=== PATIENT | male | born 1945 | race Caucasian/White ===

== ENCOUNTER → 2017-01-04 | Outpatient (CLI) | payer MEDICARE ==
--- NOTE | 2017-01-04 17:56 | XR ---
EXAMINATION TYPE: XR shoulder limited bilateral DATE OF EXAM: 01/04/2017 4:10 PM COMPARISON: NONE HISTORY: 71-year-old male carcinoma of bone TECHNIQUE: 2 views each shoulder FINDINGS: There is mild degenerative change at both AC joints. Subacromial space is preserved on both sides wit hout tendinous or bursal calcifications. No acute fracture or dislocation seen. Visualized right nelly thorax is appear clear. No periostitis or osteolysis seen. IMPRESSION: Mild bilateral AC joint OA. No acute osseous abnormality seen. No definite suspicious osseous lesion.
== END | disposition home or self-care (01) ==
LOC: RADXRMAIN 15:43
PROVIDERS: ATTEND Internal Medicine Hematology & Oncology
DX: M19.012 Primary osteoarthritis, left shoulder (principal); M19.011 Primary osteoarthritis, right shoulder; C61 Malignant neoplasm of prostate; C79.51 Secondary malignant neoplasm of bone

== ENCOUNTER → 2019-05-23 | Outpatient (CLI) | payer MEDICARE ==
[2019-05-23 11:35] LABS: African American GFR (CKD) >90 (>60 ml/min/1.73 sqM); Blood Urea Nitrogen 12 mg/dL (9-20)
--- NOTE | 2019-05-23 13:32 | CT ---
EXAMINATION TYPE: CT ChestAbdPelvis w con DATE OF EXAM: 05/23/2019 COMPARISON: 02/11/2016 HISTORY: C61 Prostate ca, Z03.89 observation for mets CONTRAST: CT scan of the chest, abdomen and pelvis is performed with Oral Contrast and with IV Contrast, patien t injected with 100 mL of Isovue 300. CT Chest: LUNGS: The lungs are clear and free of infiltrate or atelectasis. No pulmonary nodule or mass is det ected. No pleural effusion or CT evidence of interstitial lung disease. MEDIASTINUM: Thoracic aorta is of normal caliber. The heart is not enlarged. No evidence for media stinal mass or adenopathy. HILAR STRUCTURES: No evidence for mass. No hilar adenopathy is appreciated. OTHER: Mental note is made of bilateral gynecomastia. CONTRAST CT ABDOMEN AND PELVIS FINDINGS: LIVER/GB: No calcified gallstones. Gallbladder is hydropic at 10.6 cm maximal dimension. No eviden ce of pericholecystic fluid or CBD dilatation. No space occupying hepatic lesion. Biliary tree is of normal caliber. PANCREAS: No inflammation. No distinct mass. SPLEEN: No splenic enlargement. No lesion seen. ADRENALS: No nodule. No thickening. KIDNEYS/BLADDER: No hydronephrosis. No nephrolithiasis. No disctinct renal mass. BOWEL: Normal appendix. Normal bowel caliber. No inflammation. GENITAL ORGANS: No gross abnormality. LYMPH NODES: No greater than 1cm abdominal or pelvic lymph nodes are appreciated. AORTA: No significant abnormality. OSSEOUS STRUCTURES: Severe multilevel degenerative disc disease and spondylosis. Grade 1 anterolisthe sis L4 and L5 measuring 8 mm. No evidence for metastatic disease at this time. OTHER: No significant additional abnormality is seen. IMPRESSION: 1. No evidence for metastatic disease at this time.
--- NOTE | 2019-05-23 16:12 | NM ---
EXAMINATION TYPE: NM bone scan whole body DATE OF EXAM: 05/23/2019 COMPARISON: CT chest abdomen pelvis same date, nuclear medicine bone scan 02/11/2016 HISTORY: Prostate cancer, Z03.89 2 oblique views of the pelvis are presented following the injection of 22.7 mCi Tc 99m MDP. Images w ere acquired 3 hours post injection. FINDINGS: No abnormal uptake within the pelvis. IMPRESSION: 1. No suspicious uptake or photopenic defects to suggest metastatic disease.
== END | disposition home or self-care (01) ==
LOC: RADNMMAIN 10:43
PROVIDERS: ATTEND Internal Medicine Hematology & Oncology
DX: C61 Malignant neoplasm of prostate (principal); Z88.2 Allergy status to sulfonamides
CPT/HCPCS: 82565; 84520; 71260; 74177; 78306; A9503; Q9967

== ENCOUNTER → 2020-09-16 | Outpatient (CLI) | payer MEDICARE ==
--- NOTE | 2020-09-16 18:59 | US ---
EXAMINATION TYPE: US venous doppler duplex LE BI DATE OF EXAM: 09/16/2020 5:33 PM COMPARISON: NONE CLINICAL HISTORY: 75-year-old male R60.0 edema. Edema bilateral legs, worse on the left SIDE PERFORMED: bilateral TECHNIQUE: The lower extremity deep venous system is examined utilizing real time linear array sonog catherine with graded compression, doppler sonography and color-flow sonography. FINDINGS: VESSELS IMAGED: External Iliac Vein (EIV) Common Femoral Vein Deep Femoral Vein Greater Saphenous Vein * Femoral Vein Popliteal Vein Small Saphenous Vein * Proximal Calf Veins (* superficial vessels) Right Leg: no evidence of DVT Left Leg: no evidence of DVT IMPRESSION: No evidence for DVT within the bilateral lower extremities imaged from the groin to the upper calves.
== END | disposition home or self-care (01) ==
LOC: RADUSWWP 16:57
PROVIDERS: ATTEND Family Medicine
DX: R60.0 Localized edema (principal)
CPT/HCPCS: 93970

== ENCOUNTER → 2020-10-08 | Outpatient (CLI) | payer MEDICARE ==
[2020-10-08 09:46] LABS: African American GFR (CKD) >90 (>60 ml/min/1.73 sqM); Blood Urea Nitrogen 15 mg/dL (9-20); Non-African American GFR(CKD) >90 (>60 ml/min/1.73 sqM)
--- NOTE | 2020-10-08 12:42 | CT ---
EXAMINATION TYPE: CT ChestAbdPelvis w con DATE OF EXAM: 10/08/2020 COMPARISON: 05/23/2019, 02/11/2016 HISTORY: 75-year-old male follow-up Prostate and Bone CA TECHNIQUE: Contiguous axial scanning of the chest, abdomen, and pelvis performed with IV Contrast, pa tient injected with 100 mL of Isovue 300. Delayed images through the kidneys were obtained. Coronal/s agittal reconstructions performed. CT DLP: 878.4 mGycm Automated exposure control for dose reduction was used. FINDINGS: CHEST: Heart normal size without pericardial effusion. Scattered three-vessel coronary artery calcifications are present. Thoracic aorta normal caliber with very direct takeoff of the left vertebral artery directly from the aortic arch with minimal atherosclerotic calcifications at the arch and descending thoracic aorta. Trace bilateral gynecomastia. No thoracic lymphadenopathy by CT size criteria. No consolidation or pleural effusion. ABDOMEN: Liver mildly enlarged at 18.1 cm. No focal lesion or biliary ductal dilatation. Portal venous system is patent. Gallbladder, adrenal glands, kidneys, and pancreas appear within normal limits. Spleen borderline in size at 13.7 cm. No dilated small bowel, free fluid, or free air. Oral contrast progressed to the cecum. Moderate stool burden. Normal appendix. Sigmoid diverticulosis . There is new gross retroperitoneal and bilateral common iliac chain lymphadenopathy. At the level of the renal arteries, left para-aortic lymphadenopathy measures up to 3.6 cm. At the left common iliac chain, lymphadenopathy measures up to 6.1 x 3.0 cm. PELVIS: Lymphadenopathy continues along the left external iliac chain measuring up to 4.7 x 3.1 cm and at the left obturator chain measuring 1.8 x 1.5 cm. Bladder urine distended. Prostate gland is small. Pelvic phleboliths. No abnormal fluid collection in the pelvis. BONES: New osteoblastic metastases are present throughout the visualized skeleton including small foci in th e proximal femurs and additional larger lesions throughout the pelvis, sacrum, diffusely throughout t his spine, left greater than right clavicle, sternum, proximal humeri, bilateral scapula, and scatter ed throughout the ribs. Moderate to advanced degenerative disc disease mid to lower thoracic spine and throughout the lumbar spine with a degenerated levoconvex curvature of the lumbar spine and grade 2 anterolisthesis L4-L5. Grade 1 anterolisthesis L5-S1 and grade 1 retrolisthesis T12-L3 levels. IMPRESSION: 1. EXTENSIVE NEW METASTATIC RETROPERITONEAL LYMPHADENOPATHY (MEASURING UP TO 3.6 CM), BILATERAL COMMO N ILIAC CHAIN LYMPHADENOPATHY (LARGEST 6.1 CM ON THE LEFT), AND LEFT EXTERNAL ILIAC CHAIN LYMPHADENOP ATHY (MEASURING UP TO 4.7 CM). 2. NEW DIFFUSE OSTEOBLASTIC METASTASES THROUGHOUT. 3. CAD, SIGMOID DIVERTICULOSIS. ADVANCED DEGENERATIVE CHANGES THROUGHOUT THE LOWER THORACIC AND LUMBA R SPINE. GRADE 2 ANTEROLISTHESIS AT L4-L5.
--- NOTE | 2020-10-08 14:08 | NM ---
EXAMINATION TYPE: NM bone scan whole body DATE OF EXAM: 10/08/2020 COMPARISON: CT same date, bone scan 05/26/2019 HISTORY: Prostate cancer, bone cancer Delayed whole-body scanning was performed following the injection of 23.9 mCi Tc 99m MDP. Images acq uired 3 hours post injection. FINDINGS: 2 numerous to count scattered foci of increased uptake are present throughout the skeleton including the ribs and spine, pelvis, calvarium as noted on same-day CT. Has been marked progression as compare d to previous exam. Soft tissue uptake is normal. Spinal curvature again noted. IMPRESSION: Extensive metastatic disease to bone
== END | disposition home or self-care (01) ==
LOC: RADNMMAIN 08:53
PROVIDERS: ATTEND Internal Medicine Hematology & Oncology
DX: R59.1 Generalized enlarged lymph nodes (principal); I25.10 Atherosclerotic heart disease of native coronary artery without angina pectoris; K57.30 Diverticulosis of large intestine without perforation or abscess without bleeding; C79.51 Secondary malignant neoplasm of bone; C61 Malignant neoplasm of prostate; Z88.2 Allergy status to sulfonamides; Z88.8 Allergy status to other drugs, medicaments and biological substances; Z88.5 Allergy status to narcotic agent
CPT/HCPCS: 82565; 84520; 71260; 74177; 36415; 78306; A9503; Q9967 ×2

== ENCOUNTER → 2020-11-03 | Outpatient (CLI) | payer MEDICARE ==
--- NOTE | 2020-11-03 14:48 | US ---
EXAMINATION TYPE: US venous doppler duplex LE DATE OF EXAM: 11/03/2020 2:41 PM COMPARISON: US September 16, 2020 CLINICAL HISTORY: R22.42 Swelling L /R22.41 Swelling R lower limb. SIDE PERFORMED: Bilateral TECHNIQUE: The lower extremity deep venous system is examined utilizing real time linear array sonog catherine with graded compression, doppler sonography and color-flow sonography. VESSELS IMAGED: Common Femoral Vein Deep Femoral Vein Greater Saphenous Vein * Femoral Vein Popliteal Vein Small Saphenous Vein * Proximal Calf Veins (* superficial vessels) Right Leg: Negative for DVT Left Leg: Negative for DVT Grayscale, color doppler, spectral doppler imaging performed of the deep veins of the bilateral lower extremities. There is normal flow, compressibility, vascular waveforms. IMPRESSION: No ultrasound evidence for acute DVT in either lower extremity. No significant change fr om prior.
== END | disposition home or self-care (01) ==
LOC: RADUSWWP 14:21
PROVIDERS: ATTEND Internal Medicine Hematology & Oncology
DX: R22.43 Localized swelling, mass and lump, lower limb, bilateral (principal); Z88.2 Allergy status to sulfonamides; Z88.5 Allergy status to narcotic agent; Z88.8 Allergy status to other drugs, medicaments and biological substances
CPT/HCPCS: 93970

== ENCOUNTER → 2021-04-03 | Outpatient (CLI) | payer MEDICARE ==
[2021-04-03 09:04] LABS: African American GFR (CKD) >90 (>60 ml/min/1.73 sqM); Blood Urea Nitrogen 13 mg/dL (9-20); Non-African American GFR(CKD) >90 (>60 ml/min/1.73 sqM)
--- NOTE | 2021-04-03 10:35 | CT ---
EXAMINATION TYPE: CT ChestAbdPelvis wo/w con DATE OF EXAM: 04/03/2021 COMPARISON: 10/08/2020 HISTORY: C61 prostate ca CONTRAST: CT scan of the chest, abdomen and pelvis is performed with Oral Contrast and without and with IV Cont rast, patient injected with 100 mL of Isovue 300. CT Chest: LUNGS: There is reticulonodular density right upper lobe as well as a few scattered areas of groundgl ass infiltrate not seen previously. The findings may reflect a small persistent postinflammatory zavaleta ge rather than metastatic disease. Metastatic disease however is not excluded. Correlate clinically. MEDIASTINUM: Thoracic aorta is of normal caliber. The heart is not enlarged. No evidence for media stinal mass or adenopathy. HILAR STRUCTURES: No evidence for mass. No hilar adenopathy is appreciated. OTHER: No significant abnormality. CONTRAST CT ABDOMEN AND PELVIS FINDINGS: LIVER/GB: No calcified gallstones. No space occupying hepatic lesion. Biliary tree is of normal ca liber. PANCREAS: No inflammation. No distinct mass. SPLEEN: No splenic enlargement. No lesion seen. ADRENALS: No nodule. No thickening. KIDNEYS/BLADDER: No hydronephrosis. No nephrolithiasis. No disctinct renal mass. BOWEL: Normal appendix. Normal bowel caliber. No inflammation. GENITAL ORGANS: No gross abnormality. LYMPH NODES: Again noted is extensive adenopathy throughout the left para-aortic region extending int o the left common iliac artery as well as the internal and external iliac chains. The degree of adeno karena is felt to be stable. Lymph node masses measure up to 4 cm. AORTA: No significant abnormality. OSSEOUS STRUCTURES: Stable blastic metastatic lesions of the visualized axial and appendicular skelet on. OTHER: No significant additional abnormality is seen. IMPRESSION: 1. New areas of reticulonodular density within the lungs and vague areas of groundglass density may r eflect inflammatory/postinflammatory change however metastatic disease is not excluded. 2. Stable retroperitoneal lymphadenopathy as discussed above. 3. Stable blastic metastatic disease.
== END | disposition home or self-care (01) ==
LOC: RADCTMAIN 08:09
PROVIDERS: ATTEND Internal Medicine Hematology & Oncology
DX: C61 Malignant neoplasm of prostate (principal)
CPT/HCPCS: 82565; 84520; 71270; 74178; 36415; Q9967

== ENCOUNTER → 2021-04-24 | Outpatient (CLI) | payer MEDICARE ==
--- NOTE | 2021-04-24 14:28 | MR ---
EXAMINATION TYPE: MR hip LT wo con DATE OF EXAM: 04/24/2021 COMPARISON: 04/03/2021 HISTORY: Carcinoma of bone secondary, carcinoma of prostate, bone mets, pain Standard multiplanar, multisequence MRI departmental protocol Multiplanar, multisequence images of the left hip were acquired. Diffusion weighted imaging was perfo rmed. FINDINGS: Tendons: Tendinous attachments are grossly unremarkable. Hip joints: There are full-thickness articular cartilage defects of both hips. There is an extensive debris-conta ining left hip joint effusion. Labrum is not well identified. Bone marrow: There are extensive T1 dark/T2 bright lesions seen throughout the visualized appendicular and axial o sseous structures, consistent with metastatic disease. There is a subchondral curvilinear dark line o f the left femoral head, indicating likely subchondral fracture. There is a T1/T2 dark line of the le ft femoral head neck junction, most likely representing an impaction fracture. Muscle: There is edema of the proximal aspect of the left vastus musculature which is incompletely included o n this examination. Other: There is extensive left pelvic sidewall and retroperitoneal lymphadenopathy. IMPRESSION: 1. Findings compatible with extensive diffuse metastatic disease with left femoral head subchondral f racture and left femoral head neck junction impaction fracture. 2. Extensive left pelvic sidewall and retroperitoneal lymphadenopathy is most consistent with metasta tic disease. 3. There is a debris-containing left hip joint effusion with edema noted in the proximal aspect of th e vastus musculature.
--- NOTE | 2021-04-24 14:32 | MR ---
EXAMINATION TYPE: MR lumbar spine wo/w con DATE OF EXAM: 04/24/2021 COMPARISON: 04/03/2021 CT HISTORY: Carcinoma of bone secondary, carcinoma of prostate, bone mets, pain TECHNIQUE: Multiplanar, multisequence images of the lumbar spine were acquired utilizing [address] gadolinium contrast. At T12-L1, there is a disc bulge with bilateral facet arthropathy resulting in severe right neural fo raminal narrowing. L1-L2: There is a disc bulge with mild bilateral facet arthropathy resulting in severe right and mode rate left neural foraminal narrowing. L2-L3: There is a disc bulge with moderate bilateral facet arthropathy resulting in severe right and moderate left neural foraminal narrowing. L3-L4: There is a disc bulge with moderate bilateral facet arthropathy resulting in severe right and moderate left neural foraminal narrowing. L4-L5: There is mild anterolisthesis with a disc bulge and severe bilateral facet arthropathy resulti ng in moderate left and mild right neural foraminal narrowing and mild central canal stenosis. L5-S1: There is mild bilateral facet arthropathy without sequelae. There is levoscoliosis of the lumbar spine. Multiple T2 dark/T1 right lesions noted throughout the jakob jennifer are consistent with known metastatic disease. The conus terminates at approximately L1. There is loss of vertebral body height at L4, similar to prior CT examination. Multilevel endplate degenerativ e changes are seen. There is mild anterolisthesis of L4 on 5 measuring 5 mm and mild retrolisthesis o f L2 on L3 measuring 3 mm. There is extensive retroperitoneal lymphadenopathy, consistent with known metastatic disease. IMPRESSION: 1. Extensive bony metastatic disease with L4 compression fracture and mild anterolisthesis of L4 on 5 . 2. Levoscoliosis with multilevel disc disease and osteoarthritic changes, as described. 3. Extensive retroperitoneal lymphadenopathy is consistent with known metastatic disease.
== END | disposition home or self-care (01) ==
LOC: RADMRIMAIN 11:28
PROVIDERS: ATTEND Internal Medicine Hematology & Oncology
DX: C61 Malignant neoplasm of prostate (principal); C79.51 Secondary malignant neoplasm of bone; M25.452 Effusion, left hip; R60.0 Localized edema; R59.0 Localized enlarged lymph nodes; M48.56XA Collapsed vertebra, not elsewhere classified, lumbar region, initial encounter for fracture; M43.16 Spondylolisthesis, lumbar region; M41.86 Other forms of scoliosis, lumbar region
CPT/HCPCS: 72158; 73721; A9585

== ENCOUNTER → 2021-07-09 | Outpatient (CLI) | payer MEDICARE ==
[2021-07-09 16:17] LABS: Anisocytosis Slight; Basophils % (A) 0 %; Eosinophils % (A) 0 %; HCT 30.8 % (39.0-53.0); HGB 10.5 gm/dL (13.0-17.5); Lymphocytes # (A) 2.1 k/uL (1.0-4.8); Lymphocytes % (A) 11 %; MCH 34.7 pg (25.0-35.0); MCV 102.2 fL (80.0-100.0); Macrocytosis Moderate; Mean Platelet Volume 9.4; Monocytes # (A) 0.5 k/uL (0-1.0); Monocytes % (A) 3 %; Neutrophils # (A) 16.1 k/uL (1.3-7.7); Neutrophils % (A) 85 %; Platelet Count 191 k/uL (150-450); RBC 3.01 m/uL (4.30-5.90); RDW 18.6 % (11.5-15.5); WBC 18.8 k/uL (3.8-10.6)
[2021-07-09 16:29] LABS: ALT 10 U/L (4-49); AST 22 U/L (17-59); African American GFR (CKD) >90 (>60 ml/min/1.73 sqM); Albumin 4.3 g/dL (3.5-5.0); Alkaline Phosphatase 271 U/L (38-126); Anion Gap 8 mmol/L; Blood Urea Nitrogen 24 mg/dL (9-20); Calcium 10.4 mg/dL (8.4-10.2); Carbon Dioxide 25 mmol/L (22-30); Chloride 102 mmol/L (98-107); Glucose 112 mg/dL (74-99); Non-African American GFR(CKD) >90 (>60 ml/min/1.73 sqM); Potassium 4.6 mmol/L (3.5-5.1); Sodium 135 mmol/L (137-145); Total Bilirubin 0.3 mg/dL (0.2-1.3); Total Protein 6.4 g/dL (6.3-8.2)
--- NOTE | 2021-07-09 16:56 | CT ---
EXAMINATION TYPE: CT angio chest DATE OF EXAM: 07/09/2021 4:48 PM COMPARISON: Prior CT April 03, 2021 HISTORY: Shortness of breath. History of prostate cancer. CT DLP: 352.8 mGycm Automated exposure control for dose reduction was used. CONTRAST: CTA scan of the thorax is performed with IV Contrast, patient injected with 100ml mL of Isovue 370, p ulmonary embolism protocol. MIP images are created and reviewed. FINDINGS: LUNGS: The lungs are grossly clear on current study, there is no concerning parenchymal mass or nodul e identified. Mild basilar atelectatic changes are present bilaterally. There is no pleural effusion or pneumothorax seen. The tracheobronchial tree is patent. MEDIASTINUM: There is slightly suboptimal study with most dense contrast in SVC and some heterogeneit y in the periphery but no convincing CT evidence for acute pulmonary embolism. There are no new grea ter than 1 cm hilar or mediastinal lymph nodes. No pericardial effusion is seen. Heart size stable at upper limits of normal. Prominent right pulmonary artery redemonstrated suggesting underlying pulm onary hypertension. Coronary artery calcification is again seen. OTHER: Symmetric subareolar bilateral rounded gynecomastia redemonstrated. Diffuse sclerotic osseous metastatic disease again seen. IMPRESSION: Suboptimal study without acute pulmonary embolism or new suspicious acute pulmonary proce ss
== END | disposition home or self-care (01) ==
LOC: RADCTMAIN 15:26
PROVIDERS: ATTEND Nurse Practitioner
DX: R06.00 Dyspnea, unspecified (principal)
CPT/HCPCS: 80053; 85025; 71275; 36415; Q9967

== ENCOUNTER 2021-07-16 12:00 | Inpatient (IN) | payer MEDICARE ==
[2021-07-16] MEDS ORDERED: MORPHINE SULFATE 4 MG/ML SYRINGE IVP STA (13:37)
[2021-07-16 13:58] LABS: Anisocytosis Slight; Basophils # (A) 0.1 k/uL (0-0.2); Basophils % (A) 0 %; Eosinophils # (A) 0.2 k/uL (0-0.7); Eosinophils % (A) 1 %; HCT 29.8 % (39.0-53.0); HGB 10.6 gm/dL (13.0-17.5); Lymphocytes # (A) 2.3 k/uL (1.0-4.8); Lymphocytes % (A) 9 %; MCH 35.9 pg (25.0-35.0); MCHC 35.4 g/dL (31.0-37.0); MCV 101.4 fL (80.0-100.0); Macrocytosis Slight; Mean Platelet Volume 8.3; Monocytes # (A) 0.7 k/uL (0-1.0); Monocytes % (A) 3 %; Neutrophils # (A) 22.2 k/uL (1.3-7.7); Neutrophils % (A) 87 %; Platelet Count 229 k/uL (150-450); RBC 2.94 m/uL (4.30-5.90); RDW 17.4 % (11.5-15.5); WBC 25.6 k/uL (3.8-10.6)
[2021-07-16] MEDS ORDERED: VANCOMYCIN IV PER PHARMACY 1 EACH MISC MISCELLANE PRN (14:14)
[2021-07-16] MEDS ORDERED: AMPICILLIN-SULBACTAM 3 GM in SODIUM CHLORIDE 0.9% 100 ML IVPB STA (14:14)
--- NOTE | 2021-07-16 14:22 | ED ---
General Adult HPI - General Chief complaint: Skin/Abscess/Foreign Body Stated complaint: lt leg infection Time Seen by Provider: 07/16/21 12:50 Source: patient, family, RN notes reviewed Mode of arrival: wheelchair Limitations: physical limitation - History of Present Illness Initial comments: 76-year-old male presents to the emergency room for a chief complaint of cellulitis. Patient has a history of metastatic prostate cancer and last received chemotherapy about one week ago. Patient has been dealing with this infection for at least one week now but is a poor historian and family member is unsure. Patient's primary care provider Rico Judd called the ER and would like patient admitted. Patient also has a decubitus ulcer but prefers I do not look at this as he is embarrassed and would prefer only Rico see it. Patient is denying any fevers at home.Patient has no other complaints at this time including shortness of breath, chest pain, abdominal pain, nausea or vomiting, headache, or visual changes. - Related Data Home Medications Medication Instructions Recorded Confirmed Amoxicillin/Potassium Clav 875 mg PO BID 09/24/16 09/24/16 [Amox-Clav 600-42.9 mg/5 ml Ladi] Biotin 5 mg PO DAILY 09/24/16 09/24/16 Cholecalciferol [Vitamin D3] 1,000 unit PO DAILY 09/24/16 09/24/16 Diazepam [Valium] 5 mg PO HS 09/24/16 09/24/16 HYDROcodone/APAP 10-325MG [[place] 1 tab PO Q6H PRN 09/24/16 09/24/16 10-325] Hormone Injection(Unknown Dose) 1 dose INJ QMONTH 09/24/16 09/24/16 Selenium 200 mcg PO DAILY 09/24/16 09/24/16 Verapamil HCl [Verapamil ER] 180 mg PO DAILY 09/24/16 09/24/16 Zinc 50 mg PO DAILY 09/24/16 09/24/16 Previous Rx's Medication Instructions Recorded HYDROcodone/APAP 5-325MG [[place] 5] 1 - 2 each PO Q4H PRN #20 tab 09/28/16 Allergies Allergy/AdvReac Type Severity Reaction Status Date / Time sulfur dioxide Allergy Anaphylaxis Verified 07/16/21 12:46 Review of Systems ROS Statement: Those systems with pertinent positive or pertinent negative responses have been documented in the HPI. ROS Other: All systems not noted in ROS Statement are negative. Past Medical History Past Medical History: Cancer, Hyperlipidemia, Osteoarthritis (OA), Prostate Disorder Additional Past Medical History / Comment(s): Prostate ca, finished chemo June-2016 History of Any Multi-Drug Resistant Organisms: None Reported Past Surgical History: Tonsillectomy Additional Past Surgical History / Comment(s): Abd. surgery for ? rupture. Colonoscopy. Past Anesthesia/Blood Transfusion Reactions: No Reported Reaction Past Psychological History: No Psychological Hx Reported Smoking Status: Never smoker Past Alcohol Use History: None Reported Past Drug Use History: None Reported - Past Family History Mother Family Medical History: No Reported History General Exam Limitations: physical limitation General appearance: alert, in no apparent distress Head exam: Present: atraumatic Eye exam: Present: normal appearance, PERRL, EOMI. Absent: scleral icterus, conjunctival injection ENT exam: Present: normal exam, mucous membranes moist Neck exam: Present: normal inspection, full ROM. Absent: tenderness Respiratory exam: Present: normal lung sounds bilaterally. Absent: respiratory distress, wheezes Cardiovascular Exam: Present: regular rate, normal rhythm, normal heart sounds GI/Abdominal exam: Present: soft, normal bowel sounds. Absent: distended, tenderness Extremities exam: Present: full ROM (full range of motion of the left leg), normal capillary refill (Capillary refill less than 2 seconds, DP pulse 2+ left lower extremity), pedal edema, other (Erythema from the mid lower leg down to the foot consistent with cellulitis) Neurological exam: Present: alert Course Vital Signs 07/16/21 12:42 Temperature 98.5 F Pulse Rate 81 Respiratory 20 Rate Blood Pressure 132/64 O2 Sat by Pulse 97 Oximetry Medical Decision Making - Medical Decision Making I was given a heads-up the patient was coming in to the ER for a cellulitis. Vitals are stable. Patient is afebrile. Patient does have a white blood cell count of 25.6, however did receive Neupogen last week. Lactic acid is normal at 1.0. XR of the left leg shows moderate diffuse subcutaneous edema is noted without acute fracture or dislocation seen in the left tibia or fibula. no bony destruction noted. Ultrasound is negative for DVT. Case was discussed with Rico who does request oncology consultation, accepts admission. - Lab Data Result diagrams: 07/16/21 13:23 07/16/21 13:23 Lab Results 07/16/21 07/16/21 07/16/21 Range/Units 13:23 13:23 13:23 WBC 25.6 H (3.8-10.6) k/uL RBC 2.94 L (4.30-5.90) m/uL Hgb 10.6 L (13.0-17.5) gm/dL Hct 29.8 L (39.0-53.0) % MCV 101.4 H (80.0-100.0) fL MCH 35.9 H (25.0-35.0) pg MCHC 35.4 (31.0-37.0) g/dL RDW 17.4 H (11.5-15.5) % Plt Count 229 (150-450) k/uL MPV 8.3 Neutrophils % 87 % Lymphocytes % 9 % Monocytes % 3 % Eosinophils % 1 % Basophils % 0 % Neutrophils # 22.2 H (1.3-7.7) k/uL Lymphocytes # 2.3 (1.0-4.8) k/uL Monocytes # 0.7 (0-1.0) k/uL Eosinophils # 0.2 (0-0.7) k/uL Basophils # 0.1 (0-0.2) k/uL Anisocytosis Slight Macrocytosis Slight Sodium 137 (137-145) mmol/L Potassium 3.9 (3.5-5.1) mmol/L Chloride 101 (98-107) mmol/L Carbon Dioxide 28 (22-30) mmol/L Anion Gap 8 mmol/L BUN 11 (9-20) mg/dL Creatinine 0.73 (0.66-1.25) mg/dL Est GFR (CKD-EPI)AfAm >90 (>60 ml/min/1.73 sqM) Est GFR (CKD-EPI)NonAf >90 (>60 ml/min/1.73 sqM) Glucose 97 (74-99) mg/dL Plasma Lactic Acid Gaurav 1.0 (0.7-2.0) mmol/L Calcium 10.3 H (8.4-10.2) mg/dL Total Bilirubin 0.3 (0.2-1.3) mg/dL AST 25 (17-59) U/L ALT 13 (4-49) U/L Alkaline Phosphatase 319 H (38-126) U/L Total Protein 6.4 (6.3-8.2) g/dL Albumin 4.1 (3.5-5.0) g/dL Disposition Clinical Impression: Cellulitis, Leukocytosis Disposition: ADMITTED IP TO THIS HOSP Is patient prescribed a controlled substance at d/c from ED?: No Referrals: Manav Martínez MD [Primary Care Provider] - 1-2 days Time of Disposition: 14:41
[2021-07-16] MEDS ORDERED: VANCOMYCIN 1,500 MG in SODIUM CHLORIDE 0.9% 250 ML IVPB STA (14:25)
[2021-07-16 14:26] LABS: ALT 13 U/L (4-49); AST 25 U/L (17-59); African American GFR (CKD) >90 (>60 ml/min/1.73 sqM); Albumin 4.1 g/dL (3.5-5.0); Alkaline Phosphatase 319 U/L (38-126); Anion Gap 8 mmol/L; Blood Urea Nitrogen 11 mg/dL (9-20); Calcium 10.3 mg/dL (8.4-10.2); Carbon Dioxide 28 mmol/L (22-30); Chloride 101 mmol/L (98-107); Glucose 97 mg/dL (74-99); Non-African American GFR(CKD) >90 (>60 ml/min/1.73 sqM); Potassium 3.9 mmol/L (3.5-5.1); Sodium 137 mmol/L (137-145); Total Bilirubin 0.3 mg/dL (0.2-1.3); Total Protein 6.4 g/dL (6.3-8.2)
[2021-07-16] MEDS ORDERED: ONDANSETRON 4 MG/2 ML VIAL IVP PRN (14:38)
[2021-07-16] MEDS ORDERED: NALOXONE 0.4 MG/ML 1 ML VIAL IV PRN (14:38)
[2021-07-16] MEDS ORDERED: MORPHINE SULFATE 4 MG/ML SYRINGE IV PRN (14:38)
[2021-07-16] MEDS ORDERED: HYDROmorphone 0.5 MG/0.5 ML SYRINGE IVP STA ×2 (14:39→15:44)
[2021-07-16] MEDS: SODIUM CHLORIDE 0.9% 1,000 ML IV SCH (14:45)
--- NOTE | 2021-07-16 14:46 | XR ---
EXAMINATION TYPE: XR tibia fibula LT DATE OF EXAM: 07/16/2021 CLINICAL HISTORY: Cellulitis per order. Pain and swelling. TECHNIQUE: Two views of the left leg are obtained. COMPARISON: None. FINDINGS: Moderate diffuse subcutaneous edema is present bilaterally. There is no acute fracture or d islocation seen in the left tibia or fibula. Small well-defined ossific fragment from posterior super ior patella suspect old injury. Visualized ankle joint appears within normal limits. Osseous structur es are somewhat demineralized. No suspicious bony destruction noted . IMPRESSION: As above.
--- NOTE | 2021-07-16 14:58 | US ---
EXAMINATION TYPE: US venous doppler duplex LE LT DATE OF EXAM: 07/16/2021 2:18 PM COMPARISON: 11/03/2020 CLINICAL HISTORY: 76-year-old male swelling erythema. SIDE PERFORMED: Left TECHNIQUE: The lower extremity deep venous system is examined utilizing real time linear array sonog catherine with graded compression, doppler sonography and color-flow sonography. FINDINGS: VESSELS IMAGED: Common Femoral Vein Deep Femoral Vein Femoral Vein Popliteal Vein Small Saphenous Vein * Proximal Calf Veins (* superficial vessels) Left Leg: Negative for DVT IMPRESSION: No evidence for DVT within the left lower extremity imaged from the groin to the upper calf.
[2021-07-16] MEDS ORDERED: FUROSEMIDE 10 MG/ML 4 ML VIAL IV STA (15:56)
[2021-07-16] MEDS ORDERED: PROCHLORPERAZINE 10 MG TAB PO PRN (16:48)
[2021-07-16] MEDS ORDERED: NON FORMULARY DRUG (Kool's Solution 5 ML) PO PRN (16:48)
[2021-07-16] MEDS ORDERED: HYDROmorphone 1 MG/ML 1 ML SYRINGE IVP STA (17:40)
[2021-07-16] MEDS: oxyCODONE-APAP 10-325MG 1 EACH TAB PO SCH (18:33)
[2021-07-16] MEDS: IBUPROFEN 600 MG TAB PO SCH (18:34)
[2021-07-16] MEDS: SENNOSIDES-DOCUSATE SODIUM 1 EACH TAB PO SCH ×2 (21:59→22:01)
[2021-07-16] MEDS: HYDROmorphone 0.5 MG/0.5 ML SYRINGE IVP PRN (22:00)
[2021-07-16] MEDS: AMPICILLIN-SULBACTAM 3 GM in SODIUM CHLORIDE 0.9% 100 ML IVPB SCH (22:02)
[2021-07-16] MEDS: MAG HYDROX/AL HYDROX/SIMETH 30 ML, diphenhydrAMINE ELIXIR 75 MG, LIDOCAINE VISCOUS 30 M... PO SCH ×5 (22:02)
[2021-07-16] MEDS: HEPARIN SODIUM,PORCINE/PF 5,000 UNIT/0.5 ML SYRINGE SQ SCH (22:03)
[2021-07-16] MEDS: MORPHINE SULFATE ER 60 MG TABLET PO SCH (22:03)
[2021-07-16] MEDS: predniSONE 5 MG TAB PO SCH (22:31)
[2021-07-16] MEDS: LORazepam 1 MG TAB PO PRN (23:57)
[2021-07-17] MEDS: HYDROmorphone 0.5 MG/0.5 ML SYRINGE IVP PRN (00:57)
[2021-07-17] MEDS: IBUPROFEN 600 MG TAB PO SCH ×3 (03:12→17:21)
[2021-07-17] MEDS: oxyCODONE-APAP 10-325MG 1 EACH TAB PO SCH ×4 (03:12→18:24)
[2021-07-17] MEDS: MORPHINE SULFATE ER 60 MG TABLET PO SCH ×3 (04:44→17:08)
[2021-07-17] MEDS: SODIUM CHLORIDE 0.9% 1,000 ML IV SCH ×2 (04:46→15:22)
[2021-07-17] MEDS: VANCOMYCIN 1,250 MG in SODIUM CHLORIDE 0.9% 250 ML IVPB SCH ×3 (04:46→17:15)
[2021-07-17 06:32] LABS: ALT 12 U/L (4-49); AST 22 U/L (17-59); African American GFR (CKD) >90 (>60 ml/min/1.73 sqM); Albumin 3.4 g/dL (3.5-5.0); Albumin/Globulin Ratio 1.5; Alkaline Phosphatase 275 U/L (38-126); Anion Gap 5 mmol/L; Blood Urea Nitrogen 9 mg/dL (9-20); Calcium 9.8 mg/dL (8.4-10.2); Carbon Dioxide 30 mmol/L (22-30); Chloride 103 mmol/L (98-107); Globulin 2.2 g/dL; Glucose 103 mg/dL (74-99); Non-African American GFR(CKD) >90 (>60 ml/min/1.73 sqM); Potassium 3.8 mmol/L (3.5-5.1); Sodium 138 mmol/L (137-145); Total Bilirubin 0.3 mg/dL (0.2-1.3); Total Protein 5.6 g/dL (6.3-8.2)
[2021-07-17] MEDS ORDERED: HYDROmorphone 1 MG/ML 1 ML SYRINGE IVP STA (07:01)
[2021-07-17] MEDS: AMPICILLIN-SULBACTAM 3 GM in SODIUM CHLORIDE 0.9% 100 ML IVPB SCH ×4 (07:08→19:52)
[2021-07-17 10:18] LABS: HCT 27.7 % (39.6-50.0); MCH 33.8 pg (27.0-32.0); MCHC 32.5 g/dL (32.0-37.0); MCV 104.1 fL (80.0-97.0); Mean Platelet Volume 10.3 fL (9.5-12.2); Platelet Count 223 X 10*3/uL (140-440); RBC 2.66 X 10*6/uL (4.40-5.60); RDW 17.8 % (11.5-14.5); WBC 23.08 X 10*3/uL (4.50-10.00)
[2021-07-17 10:19] LABS: Basophils # (M) 0 X 10*3/uL (0.00-0.10); Eosinophils # (M) 0 X 10*3/uL (0.04-0.35); Lymphocytes # (M) 1.38 X 10*3/uL (0.90-5.00); Metamyelocytes % 2 % (0-0); Monocytes # (M) 0.69 X 10*3/uL (0.20-1.00); Myelocytes % 1 % (0-0); Neutrophils # (M) 20.31 X 10*3/uL (2.00-8.90); Neutrophils % (M) 88 %; Stomatocytes 2+; Toxic Granulation 2+
[2021-07-17] MEDS: HEPARIN SODIUM,PORCINE/PF 5,000 UNIT/0.5 ML SYRINGE SQ SCH ×2 (11:40→22:29)
[2021-07-17] MEDS: VERAPAMIL SR 180 MG TABLET.ER PO SCH (11:42)
[2021-07-17] MEDS: FUROSEMIDE 20 MG TAB PO SCH (11:42)
[2021-07-17] MEDS: predniSONE 5 MG TAB PO SCH ×2 (11:42→22:29)
[2021-07-17] MEDS: PANTOPRAZOLE 40 MG TABLET PO SCH (11:42)
[2021-07-17] MEDS: POTASSIUM CHLORIDE ER 10 MEQ TAB.ER.PRT PO SCH (11:42)
[2021-07-17] MEDS: FINASTERIDE 5 MG TAB PO SCH (11:43)
[2021-07-17] MEDS: MAG HYDROX/AL HYDROX/SIMETH 30 ML, diphenhydrAMINE ELIXIR 75 MG, LIDOCAINE VISCOUS 30 M... PO SCH ×15 (11:48→22:29)
[2021-07-17] MEDS ORDERED: VANCOMYCIN 1,250 MG in SODIUM CHLORIDE 0.9% 250 ML IVPB SCH (13:00)
--- NOTE | 2021-07-17 16:54 | P.HPIM ---
History of Present Illness H&P Date: 07/17/21 Chief Complaint: Left lower extremity cellulitis 76-year-old male with significant past medical history of metastatic prostate cancer, received chemotherapy 2 weeks prior, hyperlipidemia, osteoarthritis, and ongoing chronic pain from metastatic prostate cancer. Patient was sent to the emergency department for further evaluation of left lower extremity cellulitis, ultrasound was performed no DVTs noted. Review of labs leukocytosis, chronic anemia, mildly elevated C-reactive protein. Patient was placed on Unasyn and vancomycin for left lower extremity cellulitis. Patient denies fever, chills, shortness of breath, chest pain, palpitations, abdominal pain or nausea vo miting. Consultation with hematology/oncology for ongoing prostate CA; consultation with infectious disease for expert opinion on antibiotic therapy of left lower extremity cellulitis. 07/17/2021 Patient seen and examined at bedside. Patient resting comfortably in no acute signs of distress. Patient endorses chronic pain, decrease in left lower extremity swelling with diuresis. No adverse reaction noted with antibiotic therapy. Vital signs and diagnostic testing reviewed. Review of Systems Constitutional: Reports as per HPI Cardiovascular: Reports as per HPI Respiratory: Reports as per HPI Gastrointestinal: Reports as per HPI Genitourinary: Reports as per HPI Musculoskeletal: Reports as per HPI Integumentary: Reports as per HPI Neurological: Reports as per HPI Psychiatric: Reports as per HPI Endocrine: Reports as per HPI Hematologic/Lymphatic: Reports as per HPI Allergic/Immunologic: Reports as per HPI Past Medical History Past Medical History: Cancer, Hyperlipidemia, Osteoarthritis (OA), Prostate Disorder Additional Past Medical History / Comment(s): Prostate ca, finished chemo June-2016 History of Any Multi-Drug Resistant Organisms: None Reported Past Surgical History: Tonsillectomy Additional Past Surgical History / Comment(s): Abd. surgery for ? rupture. Colonoscopy. Past Anesthesia/Blood Transfusion Reactions: No Reported Reaction Past Psychological History: No Psychological Hx Reported Smoking Status: Never smoker Past Alcohol Use History: None Reported Past Drug Use History: None Reported - Past Family History Mother Family Medical History: No Reported History Medications and Allergies Home Medications and Allergies Comment(s): Medications and ALLERGIES reviewed Home Medications Medication Instructions Recorded Confirmed Type Verapamil HCl [Verapamil ER] 180 mg PO DAILY 09/24/16 07/16/21 History Finasteride [Proscar] 1.25 mg PO DAILY 07/16/21 07/16/21 History Furosemide [Lasix] 20 mg PO DAILY 07/16/21 07/16/21 History Ibuprofen [Motrin] 600 mg PO Q8H 07/16/21 07/16/21 History Oumar's Solution 5 ml PO QID PRN 07/16/21 07/16/21 History LORazepam [Ativan] 1 mg PO DAILY PRN 07/16/21 07/16/21 History Morphine Sulfate [Ms Contin] 60 mg PO Q8H 07/16/21 07/16/21 History Naloxone HCl [Narcan] 4 mg NASAL ONCE PRN 07/16/21 07/16/21 History Potassium Chloride ER [K-Dur 10] 10 meq PO DAILY 07/16/21 07/16/21 History Prochlorperazine [Compazine] 10 mg PO Q6H PRN 07/16/21 07/16/21 History Sennosides/Docusate Sodium [Senna 1 tab PO BID 07/16/21 07/16/21 History Plus 8.6-50 mg Tablet] oxyCODONE-APAP 10-325MG [Percocet 2.5 tab PO Q6H 07/16/21 07/16/21 History 10-325 mg] predniSONE 5 mg PO DIRECTED 07/16/21 07/16/21 History Allergies Allergy/AdvReac Type Severity Reaction Status Date / Time sulfur dioxide Allergy Anaphylaxis Verified 07/16/21 16:23 Physical Exam Vitals: Vital Signs Temp Pulse Resp BP Pulse Ox 07/17/21 15:28 98.3 F 82 18 140/65 98 07/17/21 11:05 98.4 F 82 18 142/66 98 07/17/21 07:47 98.3 F 83 18 140/67 98 07/17/21 03:00 97.8 F 81 16 148/66 98 07/16/21 22:43 96.6 F L 76 16 143/64 99 Intake and Output 07/17/21 07/17/21 07/17/21 06:59 14:59 22:59 Other: Voiding Method Toilet - Constitutional General appearance: cooperative, mild distress - EENT Eyes: EOMI, PERRLA - Neck Neck: normal ROM Carotids: bilateral: upstroke normal Thyroid: bilateral: normal size - Respiratory Respiratory: bilateral: CTA (Anterior and posterior lung roldan) - Cardiovascular Sinus rhythm Heart rate: 84 Rhythm: regular Heart sounds: normal: S1, S2 leg Peripheral Edema: left: 2+ radial pulse Peripheral Pulses: bilateral: Normal - Gastrointestinal General gastrointestinal: normal bowel sounds - Integumentary Left lower extremity erythema and swelling noted Sacral wound in healing stages noted Integumentary: pale - Neurologic Neurologic: CNII-XII intact - Musculoskeletal Musculoskeletal: generalized weakness - Psychiatric Psychiatric: A&O x's 3, appropriate affect, intact judgment & insight Results CBC & Chem 7: 07/17/21 05:30 07/17/21 05:30 Labs: Abnormal Lab Results - Last 24 Hours (Table) 07/16/21 07/17/21 07/17/21 Range/Units 13:23 05:30 05:30 WBC 23.08 H (4.50-10.00) X 10*3/uL RBC 2.66 L (4.40-5.60) X 10*6/uL Hgb 9.0 L (13.0-17.0) g/dL Hct 27.7 L (39.6-50.0) % MCV 104.1 H (80.0-97.0) fL MCH 33.8 H (27.0-32.0) pg RDW 17.8 H (11.5-14.5) % Metamyelocytes % 2 H (0-0) % Myelocytes % 1 H (0-0) % Neutrophils # (Manual) 20.31 H (2.00-8.90) X 10*3/uL Eosinophils # (Manual) 0 L (0.04-0.35) X 10*3/uL Glucose 103 H (74-99) mg/dL Alkaline Phosphatase 275 H (38-126) U/L C-Reactive Protein 1.9 H (<1.0) mg/dL Total Protein 5.6 L (6.3-8.2) g/dL Albumin 3.4 L (3.5-5.0) g/dL 07/17/21 Range/Units 08:18 WBC (4.50-10.00) X 10*3/uL RBC (4.40-5.60) X 10*6/uL Hgb (13.0-17.0) g/dL Hct (39.6-50.0) % MCV (80.0-97.0) fL MCH (27.0-32.0) pg RDW (11.5-14.5) % Metamyelocytes % (0-0) % Myelocytes % (0-0) % Neutrophils # (Manual) (2.00-8.90) X 10*3/uL Eosinophils # (Manual) (0.04-0.35) X 10*3/uL Glucose (74-99) mg/dL Alkaline Phosphatase (38-126) U/L C-Reactive Protein 1.9 H (<1.0) mg/dL Total Protein (6.3-8.2) g/dL Albumin (3.5-5.0) g/dL Microbiology - Last 24 Hours (Table) 07/16/21 13:40 Blood Culture - Preliminary Blood No Growth after 24 hours 07/16/21 13:23 Blood Culture - Preliminary Blood No Growth after 24 hours Comments: X-ray of tib-fib no osteomyelitis noted Thrombosis Risk Factor Assmnt - Choose All That Apply Any of the Below Risk Factors Present?: Yes Each Factor Represents 1 point: Swollen legs (current) Other Risk Factors: Yes Each Risk Factor Represents 2 Points: Malignancy Each Risk Factor Represents 3 Points: Age 75 years or older Other congenital or acquired thrombophilia - If yes, enter type in comment: No Thrombosis Risk Factor Assessment Total Risk Factor Score: 6 Thrombosis Risk Factor Assessment Level: High Risk Assessment and Plan Assessment: Left lower extremity cellulitis Sacral pressure ulcer Leukocytosis Metastatic prostate cancer Hyperlipidemia Osteoarthritis Chronic pain related to prostate cancer DO NOT RESUSCITATE Plan: Lower extremity cellulitis, continue Unasyn and vancomycin; consultation with infectious disease for expert opinion and antibiotic therapy Leukocytosis continue to trend, possibly related to infectious process Metastatic prostate cancer with extreme ongoing pain, continue analgesic therapy as needed Continue home medications Continue to monitor vital signs and diagnostic testing Continue medical management Further recommendations come based on patient's clinical condition Time with Patient: Greater than 30
--- NOTE | 2021-07-17 19:03 | P.CONS ---
History of Present Illness - Reason for Consult Consult date: 07/17/21 Lower extremity swelling, cellulitis, metastatic prostate cancer - History of Present Illness Mr Crump is a 76-year-old WM , well known to myself. he was found to have en elevated PSA in the 50 range in 11/22, after his colonoscopy. Repeat on 12/17/15 was 39.6. Follow up on 01/02/16 was 52.1. He therefore underwent a prostate biopsy on 01/26/16 reading adenocarcinoma in 11/12 cores with highest Enedina's score reading 4+5=9. He then had a bone scan and CT A/P. This revealed suspicious uptake at L1-L2 and left 5th rib. He was also found to have a 1.2 cm mass in LLL, and a 2 cm mixed blastic and lytic leasion in the left ischium. He was then referred here for further evaluation and recommendations. He was started on Lupron and Xgeva along with Taxotere for 6 cycles up front. He is s/p 6 cycles of taxotere, completing those in 06/22. He was then placed on Xgeva and Lupron PSA started to show a slow upward trend since mid 2017. He has had left upper molar decay requiring a root canal. He has had a partial break. Xgeva was thus held in 02/23. He was seen by his dentist, and was not felt to require any extraction. He continues to have upper jaw pain, with dental xrays showing sinus infection per him. His PSa was increased to 12.3 in 05/25. He thus started Xtandi on 06/07/19 He had 2 dental extractions each on b/l upper molars on 06/11/19. He had left sided facial swelling, which resolved slowly, by mid 07/26 he resumed Xgeva in early 09/25. This was again held as he developed recurrent jaw pain. He has now been recommended a root canal. Symptoms did improve with antibiotics. Zometa was resumed in 12/27 after pt reported resolution of his dental issues. However , he c/o recurrent dental pain after the infusion , lasting a few days. Zometa was thus stopped As above. patient's PSA at his visit on 09/01/20 was further up to 117. Therefore, Xtandi was discontinued He had biomarker testing done by [facility], which was positive only for the ID H2 mutation, for which there are no approved treatments for prostate cancer. CT chest abdomen and pelvis, and bone scan in early 10/26 confirmed marked progression of bone metastasis, as well as development of significant retroperit oliver and pelvic adenopathy He was therefore changed back to Taxotere on 10/24/20, and is status post 7 cycles. He then developed increased swelling of the left lower extremity compared to the right with increased heaviness as well as marked groin and medial thigh pain made worse by weightbearing. He has been needing to use crutches. Symptoms developed in mid 01/25. Dopplers at his visit on 01/28/21 were negative. He was advised to go to the ER but refused. at his last office visit in 02/25 the patient was having increasing back and hip pain. MRI was scheduled but he was unable to get that done for several weeks because of limited transportation options. He had chemotherapy on 03/24/21 but was unable to come in for an appointment subsequently because of increasing discomfort and difficulty with ambulation. He ultimately had MRIs on 04/24/21, showing most likely progressive disease with compression fracture at L4, as well as significant involvement of the pelvic bones with possible left subcortical femur fracture. In addition extensive pelvic adenopathy was noted. PSA at his last visit had shown further increase to 123. the patient was therefore felt to be progressing on Taxotere. Change in regimen versus comfort care was discussed with him and he opted for febrile of active treatment. He was therefore changed to Jevtana, starting at on 05/27/21. He is status post 3 cycles. Late 06/27 : he denied any fevers/chills/nausea/vomiting. Pain is able to be partially controlled with regular use of opioid regimen ( MS Contin 45 mg every 8 hours, and Percocet every 6 when necessary, prescribed by his PCP). Overall the patient is weak with decreased activity level. He requires crutches for any significant ambulation. Appetite is fair. He continues to have oral tenderness, but states this is overall less severe. His LE swelling is improved. overall the patient feels that his symptoms of pain, weakness, are stable on his current regimen. he did have slightly more fatigue after C 2 He had developed 2 cracked teeth in the right lower lower mandible, due to which Xgeva was held again at his visit in 08/26, and not resumed since. No new dental issues. He does respond to Lasix. As above. After his most recent office visit in late 06/27 he proceeded to cycle #3 about a week ago The patient states that he had some recurrent swelling of his lower extremities after the last chemo, which did not improve with Lasix as before. He also developed an area of redness, ulceration and scabbing of the left lower exudate. This was associated with increased pain especially in the calf and the back of the knee which was making it difficult for him to walk. In addition since his last visit in the office he had also developed a bed sore in the buttock area. He therefore came into the emergency room and was admitted for further managemen t. Left lower extremity Doppler was negative for DVT x-ray of the tibia and fibula showed no fracture. Review of Systems Constitutional: Reports chronic pain, Reports fatigue, Reports weakness, Reports weight loss Eyes: denies blurred vision, denies pain Ears, nose, mouth and throat: Denies headache, Denies sore throat Cardiovascular: Reports decreased exercise tolerance Respiratory: Denies cough Gastrointestinal: Reports as per HPI Genitourinary: Reports as per HPI Musculoskeletal: Reports as per HPI, Reports gait dysfunction, Reports muscle weakness Integumentary: Reports as per HPI, Reports color changes, Reports foot/leg ulcers Neurological: Reports weakness Psychiatric: Reports anxiety Endocrine: Reports fatigue Hematologic/Lymphatic: Reports as per HPI Past Medical History Past Medical History: Cancer, Hyperlipidemia, Osteoarthritis (OA), Prostate Disorder Additional Past Medical History / Comment(s): Prostate ca, finished chemo June-2016 History of Any Multi-Drug Resistant Organisms: None Reported Past Surgical History: Tonsillectomy Additional Past Surgical History / Comment(s): Abd. surgery for ? rupture. Colonoscopy. Past Anesthesia/Blood Transfusion Reactions: No Reported Reaction Past Psychological History: No Psychological Hx Reported Smoking Status: Never smoker Past Alcohol Use History: None Reported Past Drug Use History: None Reported - Past Family History Mother Family Medical History: No Reported History Medications and Allergies Home Medications Medication Instructions Recorded Confirmed Type Verapamil HCl [Verapamil ER] 180 mg PO DAILY 09/24/16 07/16/21 History Finasteride [Proscar] 1.25 mg PO DAILY 07/16/21 07/16/21 History Furosemide [Lasix] 20 mg PO DAILY 07/16/21 07/16/21 History Ibuprofen [Motrin] 600 mg PO Q8H 07/16/21 07/16/21 History Oumar's Solution 5 ml PO QID PRN 07/16/21 07/16/21 History LORazepam [Ativan] 1 mg PO DAILY PRN 07/16/21 07/16/21 History Morphine Sulfate [Ms Contin] 60 mg PO Q8H 07/16/21 07/16/21 History Naloxone HCl [Narcan] 4 mg NASAL ONCE PRN 07/16/21 07/16/21 History Potassium Chloride ER [K-Dur 10] 10 meq PO DAILY 07/16/21 07/16/21 History Prochlorperazine [Compazine] 10 mg PO Q6H PRN 07/16/21 07/16/21 History Sennosides/Docusate Sodium [Senna 1 tab PO BID 07/16/21 07/16/21 History Plus 8.6-50 mg Tablet] oxyCODONE-APAP 10-325MG [Percocet 2.5 tab PO Q6H 07/16/21 07/16/21 History 10-325 mg] predniSONE 5 mg PO DIRECTED 07/16/21 07/16/21 History Allergies Allergy/AdvReac Type Severity Reaction Status Date / Time sulfur dioxide Allergy Anaphylaxis Verified 07/16/21 16:23 Physical Exam Vitals: Vital Signs Temp Pulse Resp BP Pulse Ox 07/17/21 11:05 98.4 F 82 18 142/66 98 07/17/21 07:47 98.3 F 83 18 140/67 98 07/17/21 03:00 97.8 F 81 16 148/66 98 07/16/21 22:43 96.6 F L 76 16 143/64 99 - Constitutional General appearance: no acute distress - EENT Poor dentition Eyes: EOMI, PERRLA ENT: hearing grossly normal - Neck Neck: no lymphadenopathy - Respiratory Respiratory: bilateral: CTA - Cardiovascular Rhythm: regular Heart sounds: normal: S1, S2 - Gastrointestinal General gastrointestinal: normal bowel sounds, soft - Integumentary Mild redness of the pretibial area on the left lower 70. 3-4 cm area of redness with scabbing - Neurologic Neurologic: CNII-XII intact - Musculoskeletal Left lower extremity edema Musculoskeletal: generalized weakness - Psychiatric Psychiatric: A&O x's 3, appropriate affect Results CBC & Chem 7: 07/17/21 05:30 07/17/21 05:30 Labs: Abnormal Lab Results - Last 24 Hours (Table) 07/16/21 07/17/21 07/17/21 Range/Units 13:23 05:30 05:30 WBC 23.08 H (4.50-10.00) X 10*3/uL RBC 2.66 L (4.40-5.60) X 10*6/uL Hgb 9.0 L (13.0-17.0) g/dL Hct 27.7 L (39.6-50.0) % MCV 104.1 H (80.0-97.0) fL MCH 33.8 H (27.0-32.0) pg RDW 17.8 H (11.5-14.5) % Metamyelocytes % 2 H (0-0) % Myelocytes % 1 H (0-0) % Neutrophils # (Manual) 20.31 H (2.00-8.90) X 10*3/uL Eosinophils # (Manual) 0 L (0.04-0.35) X 10*3/uL Glucose 103 H (74-99) mg/dL Alkaline Phosphatase 275 H (38-126) U/L C-Reactive Protein 1.9 H (<1.0) mg/dL Total Protein 5.6 L (6.3-8.2) g/dL Albumin 3.4 L (3.5-5.0) g/dL 07/17/21 Range/Units 08:18 WBC (4.50-10.00) X 10*3/uL RBC (4.40-5.60) X 10*6/uL Hgb (13.0-17.0) g/dL Hct (39.6-50.0) % MCV (80.0-97.0) fL MCH (27.0-32.0) pg RDW (11.5-14.5) % Metamyelocytes % (0-0) % Myelocytes % (0-0) % Neutrophils # (Manual) (2.00-8.90) X 10*3/uL Eosinophils # (Manual) (0.04-0.35) X 10*3/uL Glucose (74-99) mg/dL Alkaline Phosphatase (38-126) U/L C-Reactive Protein 1.9 H (<1.0) mg/dL Total Protein (6.3-8.2) g/dL Albumin (3.5-5.0) g/dL Comments: X-ray tibia-fibula report reviewed Venous US: report reviewed Assessment and Plan (1) Cellulitis Narrative/Plan: The patient had developed recurrent edema, which was not as responsive as usual to Lasix. He then developed ulceration and pain . At this time there is only mild redness without significant warmth. This area was not very tender to touch. Patient states to the lower exudate swelling has also diminished with treatment inpatient. - Cultures are negative. Defer to the admitting service for treatment of cellulitis Current Visit: Yes Status: Acute Code(s): L03.90 - CELLULITIS, UNSPECIFIED SNOMED Code(s): 747951720 (2) Leukocytosis Narrative/Plan: This is most likely due to the patient having received pegylated G-CSF after his most recent chemotherapy less than 2 weeks ago Current Visit: Yes Status: Acute Code(s): D72.829 - ELEVATED WHITE BLOOD CELL COUNT, UNSPECIFIED SNOMED Code(s): 537166954 (3) Adenocarcinoma of prostate, stage 4 Narrative/Plan: Diagnostic and therapeutic circumstances as described. The patient is currently status post 3 cycles of his current regimen. PSA had diminished after cycle 1 but had increased after cycle 2. Repeat PSA. If PSA is progressively increasing, then it would be reasonable to consider imaging for restaging. His increased pain and swelling on the left side could be due to progression of disease in the pelvis and osseous structures in that area. Current Visit: Yes Status: Acute Code(s): C61 - MALIGNANT NEOPLASM OF PROSTATE SNOMED Code(s): 889242350 Plan: Check left hip and pelvis x-ray. The patient has known metastatic disease in that area, and progression could be causing the left lower extremity pain.
--- NOTE | 2021-07-17 22:13 | XR ---
EXAMINATION TYPE: XR Hip LT and AP Pelvis DATE OF EXAM: 07/17/2021 COMPARISON: NONE HISTORY: Pain. Metastatic disease. TECHNIQUE: 3 views FINDINGS: There is nondisplaced subcapital fracture of the left femur. There is slight impaction. The re is no dislocation. There are small osteoblastic foci in the visualized bony pelvis and the proxima l femurs. IMPRESSION: Osteoblastic metastatic disease. Acute subcapital impacted fracture left femur.
[2021-07-17] MEDS: SENNOSIDES-DOCUSATE SODIUM 1 EACH TAB PO SCH (22:29)
--- NOTE | 2021-07-17 23:44 | P.CONS ---
History of Present Illness - Reason for Consult Consult date: 07/17/21 left leg cellulitis , sacral pressure ulcer Requesting physician: Rico Judd - Chief Complaint left leg pain and pressure ulcer to sacral area x days - History of Present Illness History of present illness : Patient is 76-year-old male with a past medical history significant for metastatic prostate cancer in this patient last chemotherapy has been about a week ago patient has presented to the hospital with concern for pressure ulcer to the sacral area as well as left leg pain swelling redness has been going on for about a week patient denies having any h istory of any trauma patient is having pain to the left leg to be more of a daily aching 4-5 today no radiation patient did have some swelling in the area of laceration with the patient thought may have bumped into something there is no drainage patient also complaining of ulceration to the sacral area for the last few weeks he did have some dull aching pain to the sacral area 5-6 over 10 no radiation and did not have any drainage with the symptom patient has been evaluated by the ER physician on arrival to the ER patient was afebrile patient did have a white count of 25.6 down to 23.8 kidney function has been normal blood cultures have been obtained patient has been started on vancomycin and Unasyn infectious disease was consulted for further management of antibiotic therapy Review of system: CONSTITUTIONAL: Positive for weakness denies fever. EYES: No complaint. ENT: No complaint. RESPIRATORY: No complaint. CARDIOVASCULAR: No complaint. GENITOURINARY: No complaint. GASTROINTESTINAL: No complaint. MUSCULOSKELETAL: As per history of present illness. INTEGUMENTARY: As per history of present illness PSYCHOLOGIC: No complaint. ENDOCRINE: No complaint. NEUROLOGIC: No complaint. Past medical history : Reviewed, documented below Past surgical history : Reviewed, documented below Social history: Reviewed, documented below Medications: Reviewed, as documented below EXAMINATION: Vital sigans= Reviewed and documented below GENERAL DESCRIPTION: Elderly male lying in bed, no distress. No tachypnea or accessory muscle of respiration use. HEENT: Shows Pallor , no scleral icterus. Oral mucous membrane is dry. NECK: Trachea central, no thyromegaly. LUNGS: Unlabored breathing. Clear to auscultation anteriorly. No wheeze or crackle. HEART: S1, S2, regular rate and rhythm. ABDOMEN: Soft, no tenderness , guarding or rigidity EXTREMITIES: Left leg with minimal swelling redness slight warmth no open wound or any drainage. SKIN: No rash, no masses palpable. Patient did have a unstageable pressure ulcer to the sacral area with slough tissue minimal surrounding redness no foul- smelling drainage NEUROLOGICAL: The patient is awake, alert, oriented x3, mood and affect normal. LABS AND RADIOLOGY: Reviewed results see below Assessment : 1-patient with unstageable sacral pressure ulcer with slough tissue minimal surrounding cellulitis recommend local wound care. 2patient with left lower extremity cellulitis likely from gram-positive skin lilia Plan: 1-local wound care to the sacral wound with the Medihoney followed by moist dressing daily of the pressure 2-Unasyn 3 g every 6 hours to continue for lower extremity cellulitis and possibility of infected sacral pressure ulcer 3-gentle IV fluid We will follow on clinical condition and cultures to further adjust medication if needed Thank you for this consultation we will follow the patient along with you Past Medical History Past Medical History: Cancer, Hyperlipidemia, Osteoarthritis (OA), Prostate Disorder Additional Past Medical History / Comment(s): Prostate ca, finished chemo June-2016 History of Any Multi-Drug Resistant Organisms: None Reported Past Surgical History: Tonsillectomy Additional Past Surgical History / Comment(s): Abd. surgery for ? rupture. Colonoscopy. Past Anesthesia/Blood Transfusion Reactions: No Reported Reaction Past Psychological History: No Psychological Hx Reported Smoking Status: Never smoker Past Alcohol Use History: None Reported Past Drug Use History: None Reported - Past Family History Mother Family Medical History: No Reported History Medications and Allergies Home Medications Medication Instructions Recorded Confirmed Type Verapamil HCl [Verapamil ER] 180 mg PO DAILY 09/24/16 07/16/21 History Finasteride [Proscar] 1.25 mg PO DAILY 07/16/21 07/16/21 History Furosemide [Lasix] 20 mg PO DAILY 07/16/21 07/16/21 History Ibuprofen [Motrin] 600 mg PO Q8H 07/16/21 07/16/21 History Oumar's Solution 5 ml PO QID PRN 07/16/21 07/16/21 History LORazepam [Ativan] 1 mg PO DAILY PRN 07/16/21 07/16/21 History Morphine Sulfate [Ms Contin] 60 mg PO Q8H 07/16/21 07/16/21 History Naloxone HCl [Narcan] 4 mg NASAL ONCE PRN 07/16/21 07/16/21 History Potassium Chloride ER [K-Dur 10] 10 meq PO DAILY 07/16/21 07/16/21 History Prochlorperazine [Compazine] 10 mg PO Q6H PRN 07/16/21 07/16/21 History Sennosides/Docusate Sodium [Senna 1 tab PO BID 07/16/21 07/16/21 History Plus 8.6-50 mg Tablet] oxyCODONE-APAP 10-325MG [Percocet 2.5 tab PO Q6H 07/16/21 07/16/21 History 10-325 mg] predniSONE 5 mg PO DIRECTED 07/16/21 07/16/21 History Allergies Allergy/AdvReac Type Severity Reaction Status Date / Time sulfur dioxide Allergy Anaphylaxis Verified 07/16/21 16:23 Physical Exam Vitals: Vital Signs Temp Pulse Resp BP Pulse Ox 07/17/21 11:05 98.4 F 82 18 142/66 98 07/17/21 07:47 98.3 F 83 18 140/67 98 07/17/21 03:00 97.8 F 81 16 148/66 98 07/16/21 22:43 96.6 F L 76 16 143/64 99 Results CBC & Chem 7: 07/17/21 05:30 07/17/21 05:30 Labs: Abnormal Lab Results - Last 24 Hours (Table) 07/16/21 07/17/21 07/17/21 Range/Units 13:23 05:30 05:30 WBC 23.08 H (4.50-10.00) X 10*3/uL RBC 2.66 L (4.40-5.60) X 10*6/uL Hgb 9.0 L (13.0-17.0) g/dL Hct 27.7 L (39.6-50.0) % MCV 104.1 H (80.0-97.0) fL MCH 33.8 H (27.0-32.0) pg RDW 17.8 H (11.5-14.5) % Metamyelocytes % 2 H (0-0) % Myelocytes % 1 H (0-0) % Neutrophils # (Manual) 20.31 H (2.00-8.90) X 10*3/uL Eosinophils # (Manual) 0 L (0.04-0.35) X 10*3/uL Glucose 103 H (74-99) mg/dL Alkaline Phosphatase 275 H (38-126) U/L C-Reactive Protein 1.9 H (<1.0) mg/dL Total Protein 5.6 L (6.3-8.2) g/dL Albumin 3.4 L (3.5-5.0) g/dL 07/17/21 Range/Units 08:18 WBC (4.50-10.00) X 10*3/uL RBC (4.40-5.60) X 10*6/uL Hgb (13.0-17.0) g/dL Hct (39.6-50.0) % MCV (80.0-97.0) fL MCH (27.0-32.0) pg RDW (11.5-14.5) % Metamyelocytes % (0-0) % Myelocytes % (0-0) % Neutrophils # (Manual) (2.00-8.90) X 10*3/uL Eosinophils # (Manual) (0.04-0.35) X 10*3/uL Glucose (74-99) mg/dL Alkaline Phosphatase (38-126) U/L C-Reactive Protein 1.9 H (<1.0) mg/dL Total Protein (6.3-8.2) g/dL Albumin (3.5-5.0) g/dL
[2021-07-18] MEDS: MORPHINE SULFATE ER 60 MG TABLET PO SCH ×4 (00:03→23:41)
[2021-07-18] MEDS: IBUPROFEN 600 MG TAB PO SCH ×4 (00:04→23:41)
[2021-07-18] MEDS: oxyCODONE-APAP 10-325MG 1 EACH TAB PO SCH ×5 (00:05→23:40)
[2021-07-18] MEDS: AMPICILLIN-SULBACTAM 3 GM in SODIUM CHLORIDE 0.9% 100 ML IVPB SCH ×4 (01:49→20:31)
[2021-07-18] MEDS: VANCOMYCIN 1,250 MG in SODIUM CHLORIDE 0.9% 250 ML IVPB SCH ×2 (02:21→10:19)
[2021-07-18] MEDS: HYDROmorphone 0.5 MG/0.5 ML SYRINGE IVP PRN ×2 (06:09→20:24)
[2021-07-18 07:14] LABS: Glucose,Whole Blood 101 mg/dL (75-99)
[2021-07-18] MEDS: POTASSIUM CHLORIDE ER 10 MEQ TAB.ER.PRT PO SCH (07:32)
[2021-07-18] MEDS: FUROSEMIDE 20 MG TAB PO SCH (07:32)
[2021-07-18] MEDS: SENNOSIDES-DOCUSATE SODIUM 1 EACH TAB PO SCH ×2 (07:33→20:26)
[2021-07-18] MEDS: FINASTERIDE 5 MG TAB PO SCH (07:33)
[2021-07-18] MEDS: PANTOPRAZOLE 40 MG TABLET PO SCH (07:33)
[2021-07-18] MEDS: predniSONE 5 MG TAB PO SCH ×2 (07:33→20:26)
[2021-07-18] MEDS: HEPARIN SODIUM,PORCINE/PF 5,000 UNIT/0.5 ML SYRINGE SQ SCH ×2 (07:34→20:27)
[2021-07-18] MEDS: MAG HYDROX/AL HYDROX/SIMETH 30 ML, diphenhydrAMINE ELIXIR 75 MG, LIDOCAINE VISCOUS 30 M... PO SCH ×15 (07:34→20:39)
[2021-07-18] MEDS: VERAPAMIL SR 180 MG TABLET.ER PO SCH (07:34)
[2021-07-18] MEDS: LORazepam 1 MG TAB PO PRN (07:35)
[2021-07-18] MEDS ORDERED: VANCOMYCIN TROUGH DUE 1 EACH MISC MISCELLANE ONE (08:00)
[2021-07-18 09:04] LABS: Anisocytosis Slight; Basophils % (A) 0 %; Eosinophils # (A) 0.1 k/uL (0-0.7); Eosinophils % (A) 0 %; HCT 29.2 % (39.0-53.0); Lymphocytes # (A) 2.3 k/uL (1.0-4.8); Lymphocytes % (A) 13 %; MCH 35.3 pg (25.0-35.0); MCHC 34.2 g/dL (31.0-37.0); MCV 103.2 fL (80.0-100.0); Macrocytosis Moderate; Mean Platelet Volume 7.6; Monocytes # (A) 0.4 k/uL (0-1.0); Monocytes % (A) 2 %; Neutrophils # (A) 15.2 k/uL (1.3-7.7); Neutrophils % (A) 84 %; Platelet Count 236 k/uL (150-450); RBC 2.83 m/uL (4.30-5.90); RDW 17.6 % (11.5-15.5); WBC 18.2 k/uL (3.8-10.6)
[2021-07-18] MEDS: SODIUM CHLORIDE 0.9% 1,000 ML IV SCH ×2 (09:25→20:27)
[2021-07-18 09:39] LABS: ALT 11 U/L (4-49); AST 19 U/L (17-59); African American GFR (CKD) >90 (>60 ml/min/1.73 sqM); Albumin 3.3 g/dL (3.5-5.0); Albumin/Globulin Ratio 1.6; Alkaline Phosphatase 248 U/L (38-126); Anion Gap 5 mmol/L; Blood Urea Nitrogen 7 mg/dL (9-20); Calcium 9.8 mg/dL (8.4-10.2); Carbon Dioxide 28 mmol/L (22-30); Chloride 106 mmol/L (98-107); Globulin 2.1 g/dL; Glucose 126 mg/dL (74-99); Non-African American GFR(CKD) >90 (>60 ml/min/1.73 sqM); Potassium 3.8 mmol/L (3.5-5.1); Sodium 139 mmol/L (137-145); Total Bilirubin 0.2 mg/dL (0.2-1.3); Total Protein 5.4 g/dL (6.3-8.2)
[2021-07-18 11:33] LABS: Glucose,Whole Blood 133 mg/dL (75-99)
[2021-07-18] MEDS: INSULIN ASPART (NovoLOG) 100 UNIT/ML VIAL SQ SCH ×3 (11:35→20:50)
[2021-07-18] MEDS: VANCOMYCIN 1,000 MG in SODIUM CHLORIDE 0.9% 250 ML IVPB SCH ×2 (11:43→20:27)
[2021-07-18 16:36] LABS: Glucose,Whole Blood 133 mg/dL (75-99)
--- NOTE | 2021-07-18 18:00 | P.PN ---
Subjective Progress Note Date: 07/18/21 Principal diagnosis: Left lower extremity cellulitis 76-year-old male with significant past medical history of metastatic prostate cancer, received chemotherapy 2 weeks prior, hyperlipidemia, osteoarthritis, and ongoing chronic pain from metastatic prostate cancer. Patient was sent to the emergency department for further evaluation of left lower extremity cellulitis, ultrasound was performed no DVTs noted. Review of labs leukocytosis, chronic anemia, mildly elevated C-reactive protein. Patient was placed on Unasyn and vancomycin for left lower extremity cellulitis. Patient denies fever, chills, shortness of breath, chest pain, palpitations, abdominal pain or nausea vomiting. Consultation with hematology/oncology for ongoing prostate CA; consultation with infectious disease for expert opinion on antibiotic therapy of left lower extremity cellulitis. 07/17/2021 Patient seen and examined at bedside. Patient resting comfortably in no acute signs of distress. Patient endorses chronic pain, decrease in left lower extremity swelling with diuresis. No adverse reaction noted with antibiotic therapy. Vital signs and diagnostic testing reviewed. 07/18/2021 Patient is currently sitting on the side of the bed. Left lower the redness and swelling is improving. Continued on antibiotics in the form of Unasyn as per ID recommendations. Next and pain is controlled with a morphine ER and IV. Denied any complaints of chest pain. Patient has been afebrile. No nausea vomiting or abdominal pain or diarrhea. Laboratory data showed WBC 18.2 hemoglobin 10.0 and platelets 236 MCV 103.2 BUN 7 and creatinine 0.67, AST 19 and 11 and alk phos 248. No complaints of chest pain or shortness of breath. No headache or dizziness or lightheadedness. Active Medications Generic Name Dose Route Start Last Admin Trade Name Freq PRN Reason Stop Dose Admin Al Hydroxide/Mg Hydroxide 30 0 ml 07/16/21 22:00 07/18/21 15:29 ml/ Diphenhydramine HCl 75 mg/ PO 5 ml Lidocaine HCl 30 ml/ TID MENDOZA Administration Dexamethasone Sodium Phosphate 3 mg/ Sterile Water 29.25 ml Finasteride 1.25 mg 07/17/21 09:00 07/18/21 07:33 Finasteride 5 Mg Tab PO 1.25 mg DAILY MENDOZA Administration Furosemide 20 mg 07/17/21 09:00 07/18/21 07:32 Furosemide 20 Mg Tab PO 20 mg DAILY MENDOZA Administration Heparin Sodium (Porcine) 5,000 unit 07/16/21 21:00 07/18/21 07:34 Heparin Sodium,Porcine/Pf 5,000 Unit/0.5 Ml Syringe SQ 5,000 unit Q12HR MENDOZA Administration Hydromorphone HCl 0.5 mg 07/16/21 14:38 07/18/21 06:09 Hydromorphone 0.5 Mg/0.5 Ml Syringe IVP 0.5 mg Q3HR PRN Administration Moderate Pain Sodium Chloride 1,000 mls @ 75 mls/hr 07/16/21 14:45 07/18/21 09:25 Saline 0.9% IV Not Given .[id number] MENDOZA Ampicillin Sodium/Sulbactam 100 mls @ 200 mls/hr 07/16/21 20:00 07/18/21 13:55 Sodium 3 gm/ Sodium Chloride IVPB 200 mls/hr Q6H MENDOZA Administration Vancomycin HCl 1,000 mg/ 250 mls @ 125 mls/hr 07/18/21 12:00 07/18/21 11:43 Sodium Chloride IVPB 125 mls/hr Q8H MENDOZA Administration Ibuprofen 600 mg 07/16/21 17:15 07/18/21 15:29 Ibuprofen 600 Mg Tab PO 600 mg Q8HR MENDOZA Administration Insulin Aspart 0 unit 07/18/21 12:30 07/18/21 16:57 Insulin Aspart (Novolog) 100 Unit/Ml Vial SQ Not Given ACHS [facility] Protocol Lorazepam 1 mg 07/16/21 16:48 07/18/21 07:35 Lorazepam 1 Mg Tab PO 1 mg DAILY PRN Administration Anxiety Morphine Sulfate 4 mg 07/16/21 14:38 07/16/21 18:30 Morphine Sulfate 4 Mg/Ml Syringe IV 4 mg Q4HR PRN Administration Severe Pain Morphine Sulfate 60 mg 07/16/21 17:15 07/18/21 15:29 Morphine Sulfate Er 60 Mg Tablet PO 60 mg Q8HR MENDOZA Administration Protocol Naloxone HCl 0.2 mg 07/16/21 14:38 Naloxone 0.4 Mg/Ml 1 Ml Vial IV Q2M PRN Opioid Reversal Ondansetron HCl 4 mg 07/16/21 14:38 Ondansetron 4 Mg/2 Ml Vial IVP Q8HR PRN Nausea And Vomiting Oxycodone/Acetaminophen 2.5 each 07/16/21 18:00 07/18/21 17:06 Oxycodone-Apap 10-325mg 1 Each Tab PO 2.5 each Q6HR MENDOZA Administration Pantoprazole Sodium 40 mg 07/17/21 07:30 07/18/21 07:33 Pantoprazole 40 Mg Tablet PO 40 mg [id number] MENDOZA Administration Potassium Chloride 10 meq 07/17/21 09:00 07/18/21 07:32 Potassium Chloride Er 10 Meq Tab.Er.Prt PO 10 meq DAILY MENDOZA Administration Prednisone 5 mg 07/16/21 21:00 07/18/21 07:33 Prednisone 5 Mg Tab PO 07/28/21 23:00 5 mg BID MENDOZA Administration Prochlorperazine Maleate 10 mg 07/16/21 16:48 Prochlorperazine 10 Mg Tab PO Q6H PRN Nausea Senna/Docusate Sodium 1 each 07/16/21 21:00 07/18/21 07:33 Sennosides-Docusate Sodium 1 Each Tab PO 1 each BID MENDOZA Administration Verapamil HCl 180 mg 07/17/21 09:00 07/18/21 07:34 Verapamil Sr 180 Mg Tablet.Er PO 180 mg DAILY MENDOZA Administration Objective - Vital Signs Vital signs: Vital Signs Temp 98.4 F 07/18/21 14:11 Pulse 63 07/18/21 14:11 Resp 17 07/18/21 14:11 BP 111/58 07/18/21 14:11 Pulse Ox 97 07/18/21 14:11 Intake & Output 07/17/21 07/18/21 07/18/21 18:59 06:59 18:59 Other: Voiding Method Toilet Toilet # Voids 1 2 - Exam - Constitutional General appearance: cooperative, mild distress - EENT Eyes: EOMI, PERRLA - Neck Neck: normal ROM Carotids: bilateral: upstroke normal Thyroid: bilateral: normal size - Respiratory Respiratory: bilateral: CTA (Anterior and posterior lung roldan) - Cardiovascular Sinus rhythm Heart rate: 84 Rhythm: regular Heart sounds: normal: S1, S2 leg Peripheral Edema: left: 2+ radial pulse Peripheral Pulses: bilateral: Normal - Gastrointestinal General gastrointestinal: normal bowel sounds - Integumentary Left lower extremity erythema and swelling noted Sacral wound in healing stages noted Integumentary: pale - Neurologic Neurologic: CNII-XII intact - Musculoskeletal Musculoskeletal: generalized weakness - Psychiatric Psychiatric: A&O x's 3, appropriate affect, intact judgment & insight - Labs CBC & Chem 7: 07/18/21 08:21 07/18/21 08:21 Labs: Abnormal Lab Results - Last 24 Hours (Table) 07/18/21 07/18/21 07/18/21 Range/Units 07:13 08:21 08:21 WBC 18.2 H (3.8-10.6) k/uL RBC 2.83 L (4.30-5.90) m/uL Hgb 10.0 L (13.0-17.5) gm/dL Hct 29.2 L (39.0-53.0) % MCV 103.2 H (80.0-100.0) fL MCH 35.3 H (25.0-35.0) pg RDW 17.6 H (11.5-15.5) % Neutrophils # 15.2 H (1.3-7.7) k/uL BUN 7 L (9-20) mg/dL Glucose 126 H (74-99) mg/dL POC Glucose (mg/dL) 101 H (75-99) mg/dL Alkaline Phosphatase 248 H (38-126) U/L Total Protein 5.4 L (6.3-8.2) g/dL Albumin 3.3 L (3.5-5.0) g/dL 07/18/21 07/18/21 Range/Units 11:31 16:35 WBC (3.8-10.6) k/uL RBC (4.30-5.90) m/uL Hgb (13.0-17.5) gm/dL Hct (39.0-53.0) % MCV (80.0-100.0) fL MCH (25.0-35.0) pg RDW (11.5-15.5) % Neutrophils # (1.3-7.7) k/uL BUN (9-20) mg/dL Glucose (74-99) mg/dL POC Glucose (mg/dL) 133 H 133 H (75-99) mg/dL Alkaline Phosphatase (38-126) U/L Total Protein (6.3-8.2) g/dL Albumin (3.5-5.0) g/dL Microbiology - Last 24 Hours (Table) 07/16/21 13:40 Blood Culture - Preliminary Blood No Growth after 48 hours 07/16/21 13:23 Blood Culture - Preliminary Blood No Growth after 48 hours Assessment and Plan Assessment: Left lower extremity cellulitis Sacral pressure ulcer Leukocytosis Metastatic prostate cancer Hyperlipidemia Osteoarthritis Chronic pain related to prostate cancer DO NOT RESUSCITATE Plan: Lower extremity cellulitis, continue Unasyn and vancomycin; ID is on board. Leukocytosis continue to trend, possibly related to infectious process Metastatic prostate cancer with extreme ongoing pain, continue analgesic therapy as needed Continue home medications Continue to monitor vital signs and diagnostic testing Continue medical management Further recommendations come based on patient's clinical condition Time with Patient: Greater than 30
[2021-07-18 18:35] LABS: PSA Annual Screen 172.1 ng/mL (0.0-4.0)
--- NOTE | 2021-07-18 18:58 | P.GSCN ---
History of Present Illness Consult date: 07/18/21 Reason for Consult: Sacral decubitus ulcer History of present illness: 76-year-old male with diagnosis of metastatic prostate cancer. Patient has metastases to the bone with some malignant fractures apparently. He has been less active. Complains of pain in the sacral region left of midline. Patient was seen by infectious disease. We were consulted for debridement. His white blood cell count is elevated. No fevers. Patient is hoping to go home soon. He lives at home by himself. He is ambulatory. Review of Systems The patient denies any acute changes in vision or hearing, no dysphagia or odynophagia, no chest pain or shortness of breath, no dysuria or hematuria, no headache, no runny nose, no rectal bleeding or melena, no unexplained weight loss Past Medical History Past Medical History: Cancer, Hyperlipidemia, Osteoarthritis (OA), Prostate Disorder Additional Past Medical History / Comment(s): Prostate ca, finished chemo [place] History of Any Multi-Drug Resistant Organisms: None Reported Past Surgical History: Tonsillectomy Additional Past Surgical History / Comment(s): Abd. surgery for ? rupture. Colonoscopy. Past Anesthesia/Blood Transfusion Reactions: No Reported Reaction Past Psychological History: No Psychological Hx Reported Smoking Status: Never smoker Past Alcohol Use History: None Reported Past Drug Use History: None Reported - Past Family History Mother Family Medical History: No Reported History Medications and Allergies Home Medications Medication Instructions Recorded Confirmed Type Verapamil HCl [Verapamil ER] 180 mg PO DAILY 09/24/16 07/16/21 History Finasteride [Proscar] 1.25 mg PO DAILY 07/16/21 07/16/21 History Furosemide [Lasix] 20 mg PO DAILY 07/16/21 07/16/21 History Ibuprofen [Motrin] 600 mg PO Q8H 07/16/21 07/16/21 History Oumar's Solution 5 ml PO QID PRN 07/16/21 07/16/21 History LORazepam [Ativan] 1 mg PO DAILY PRN 07/16/21 07/16/21 History Morphine Sulfate [Ms Contin] 60 mg PO Q8H 07/16/21 07/16/21 History Naloxone HCl [Narcan] 4 mg NASAL ONCE PRN 07/16/21 07/16/21 History Potassium Chloride ER [K-Dur 10] 10 meq PO DAILY 07/16/21 07/16/21 History Prochlorperazine [Compazine] 10 mg PO Q6H PRN 07/16/21 07/16/21 History Sennosides/Docusate Sodium [Senna 1 tab PO BID 07/16/21 07/16/21 History Plus 8.6-50 mg Tablet] oxyCODONE-APAP 10-325MG [Percocet 2.5 tab PO Q6H 07/16/21 07/16/21 History 10-325 mg] predniSONE 5 mg PO DIRECTED 07/16/21 07/16/21 History Allergies Allergy/AdvReac Type Severity Reaction Status Date / Time sulfur dioxide Allergy Anaphylaxis Verified 07/16/21 16:23 Surgical - Exam Vital Signs Temp Pulse Resp BP Pulse Ox 98.5 F 81 20 132/64 97 07/16/21 12:42 07/16/21 12:42 07/16/21 12:42 07/16/21 12:42 07/16/21 12:42 Physical exam: General: Well-developed, well-nourished HEENT: Normocephalic, sclerae nonicteric Abdomen: Nontender, nondistended Extremities: Bilateral lower extremity edema left greater than right, mild redness left leg, sacral region with stage II pressure ulcer measuring 3 x 3 cm, central portion of necrotic skin measuring 1.5 x 1.5 cm, no fluctuance, minimal tenderness, no erythema Neuro: Alert and oriented Results - Labs 07/18/21 08:21 07/18/21 08:21 Abnormal Lab Results - Last 24 Hours (Table) 07/18/21 07/18/21 07/18/21 Range/Units 07:13 08:21 08:21 WBC 18.2 H (3.8-10.6) k/uL RBC 2.83 L (4.30-5.90) m/uL Hgb 10.0 L (13.0-17.5) gm/dL Hct 29.2 L (39.0-53.0) % MCV 103.2 H (80.0-100.0) fL MCH 35.3 H (25.0-35.0) pg RDW 17.6 H (11.5-15.5) % Neutrophils # 15.2 H (1.3-7.7) k/uL BUN 7 L (9-20) mg/dL Glucose 126 H (74-99) mg/dL POC Glucose (mg/dL) 101 H (75-99) mg/dL Alkaline Phosphatase 248 H (38-126) U/L Total Protein 5.4 L (6.3-8.2) g/dL Albumin 3.3 L (3.5-5.0) g/dL PSA Screen 172.1 H (0.0-4.0) ng/mL 07/18/21 07/18/21 Range/Units 11:31 16:35 WBC (3.8-10.6) k/uL RBC (4.30-5.90) m/uL Hgb (13.0-17.5) gm/dL Hct (39.0-53.0) % MCV (80.0-100.0) fL MCH (25.0-35.0) pg RDW (11.5-15.5) % Neutrophils # (1.3-7.7) k/uL BUN (9-20) mg/dL Glucose (74-99) mg/dL POC Glucose (mg/dL) 133 H 133 H (75-99) mg/dL Alkaline Phosphatase (38-126) U/L Total Protein (6.3-8.2) g/dL Albumin (3.5-5.0) g/dL PSA Screen (0.0-4.0) ng/mL Microbiology - Last 24 Hours (Table) 07/16/21 13:40 Blood Culture - Preliminary Blood No Growth after 48 hours 07/16/21 13:23 Blood Culture - Preliminary Blood No Growth after 48 hours Diabetes panel 07/18/21 Range/Units 08:21 Sodium 139 (137-145) mmol/L Potassium 3.8 (3.5-5.1) mmol/L Chloride 106 (98-107) mmol/L Carbon Dioxide 28 (22-30) mmol/L BUN 7 L (9-20) mg/dL Creatinine 0.67 (0.66-1.25) mg/dL Glucose 126 H (74-99) mg/dL Calcium 9.8 (8.4-10.2) mg/dL AST 19 (17-59) U/L ALT 11 (4-49) U/L Alkaline Phosphatase 248 H (38-126) U/L Total Protein 5.4 L (6.3-8.2) g/dL Albumin 3.3 L (3.5-5.0) g/dL Calcium panel 07/18/21 Range/Units 08:21 Calcium 9.8 (8.4-10.2) mg/dL Albumin 3.3 L (3.5-5.0) g/dL Pituitary panel 07/18/21 Range/Units 08:21 Sodium 139 (137-145) mmol/L Potassium 3.8 (3.5-5.1) mmol/L Chloride 106 (98-107) mmol/L Carbon Dioxide 28 (22-30) mmol/L BUN 7 L (9-20) mg/dL Creatinine 0.67 (0.66-1.25) mg/dL Glucose 126 H (74-99) mg/dL Calcium 9.8 (8.4-10.2) mg/dL Adrenal panel 07/18/21 Range/Units 08:21 Sodium 139 (137-145) mmol/L Potassium 3.8 (3.5-5.1) mmol/L Chloride 106 (98-107) mmol/L Carbon Dioxide 28 (22-30) mmol/L BUN 7 L (9-20) mg/dL Creatinine 0.67 (0.66-1.25) mg/dL Glucose 126 H (74-99) mg/dL Calcium 9.8 (8.4-10.2) mg/dL Total Bilirubin 0.2 (0.2-1.3) mg/dL AST 19 (17-59) U/L ALT 11 (4-49) U/L Alkaline Phosphatase 248 H (38-126) U/L Total Protein 5.4 L (6.3-8.2) g/dL Albumin 3.3 L (3.5-5.0) g/dL Assessment and Plan (1) Sacral decubitus ulcer, stage III Narrative/Plan: 76-year-old male with sacral decubitus ulcer. We'll proceed with bedside debridement tomorrow. Risks of bleeding, enlargement of wound, persistent wound and infection reviewed. Patient understands and wishes to proceed. Current Visit: Yes Status: Acute Code(s): L89.153 - PRESSURE ULCER OF SACRAL REGION, STAGE 3 SNOMED Code(s): 407409984
[2021-07-18 20:36] LABS: Glucose,Whole Blood 132 mg/dL (75-99)
[2021-07-19] MEDS: LORazepam 1 MG TAB PO PRN ×2 (00:27→15:12)
[2021-07-19] MEDS: AMPICILLIN-SULBACTAM 3 GM in SODIUM CHLORIDE 0.9% 100 ML IVPB SCH ×4 (02:28→20:29)
[2021-07-19] MEDS: VANCOMYCIN 1,000 MG in SODIUM CHLORIDE 0.9% 250 ML IVPB SCH ×3 (03:43→20:29)
[2021-07-19] MEDS: HYDROmorphone 0.5 MG/0.5 ML SYRINGE IVP PRN (03:51)
[2021-07-19] MEDS: oxyCODONE-APAP 10-325MG 1 EACH TAB PO SCH ×3 (06:01→17:30)
[2021-07-19 06:58] LABS: Glucose,Whole Blood 84 mg/dL (75-99)
[2021-07-19 07:14] LABS: African American GFR (CKD) >90 (>60 ml/min/1.73 sqM); Non-African American GFR(CKD) >90 (>60 ml/min/1.73 sqM)
--- NOTE | 2021-07-19 07:15 | PN ---
PROGRESS NOTE DATE OF SERVICE: 07/18/2021. REASON FOR FOLLOW UP: Left leg cellulitis and infected sacral pressure ulcer. INTERVAL HISTORY: Patient is afebrile. Patient is breathing comfortably. Patient has been complaining of pain to his sacral wound area. No chest pain, shortness of breath or cough. No abdominal pain or diarrhea. PHYSICAL EXAMINATION: Blood pressure is 125/62 with pulse of 73, temperature 99.3. He is 92% on room air. General description is an elderly male lying in bed in no distress. Respiratory system: Unlabored breathing, clear to auscultation anteriorly. Heart S1, S2. Regular rate and rhythm. Abdomen: Soft, no tenderness. Left leg swelling persists. Redness has decreased. LABS: Hemoglobin is 10.3, white count 18.2, BUN of 7, creatinine 0.67. DIAGNOSTIC IMPRESSION AND PLAN: Patient with elevated white count. Concern likely from his infected sacral pressure ulcer. Surgical consulted for debridement of the wound and deep cultures. Continue Unasyn and vancomycin adjusting antibiotic on the basis of culture report. Continue supportive care. MMODL / IJN: [id number] /
[2021-07-19] MEDS: INSULIN ASPART (NovoLOG) 100 UNIT/ML VIAL SQ SCH ×4 (07:36→21:01)
[2021-07-19] MEDS: POTASSIUM CHLORIDE ER 10 MEQ TAB.ER.PRT PO SCH (08:22)
[2021-07-19] MEDS: IBUPROFEN 600 MG TAB PO SCH ×3 (08:23→23:36)
[2021-07-19] MEDS: PANTOPRAZOLE 40 MG TABLET PO SCH (08:23)
[2021-07-19] MEDS: SENNOSIDES-DOCUSATE SODIUM 1 EACH TAB PO SCH ×2 (08:23→20:29)
[2021-07-19] MEDS: FINASTERIDE 5 MG TAB PO SCH (08:24)
[2021-07-19] MEDS: FUROSEMIDE 20 MG TAB PO SCH (08:24)
[2021-07-19] MEDS: MORPHINE SULFATE ER 60 MG TABLET PO SCH ×2 (08:24→15:12)
[2021-07-19] MEDS: predniSONE 5 MG TAB PO SCH ×2 (08:25→22:00)
[2021-07-19] MEDS: HEPARIN SODIUM,PORCINE/PF 5,000 UNIT/0.5 ML SYRINGE SQ SCH ×2 (08:25→20:29)
[2021-07-19] MEDS: VERAPAMIL SR 180 MG TABLET.ER PO SCH (08:25)
[2021-07-19] MEDS: MAG HYDROX/AL HYDROX/SIMETH 30 ML, diphenhydrAMINE ELIXIR 75 MG, LIDOCAINE VISCOUS 30 M... PO SCH ×15 (08:27→20:30)
[2021-07-19 09:12] LABS: HCT 29.1 % (39.6-50.0); HGB 9.3 g/dL (13.0-17.0); MCH 34.2 pg (27.0-32.0); Mean Platelet Volume 9.7 fL (9.5-12.2); Platelet Count 223 X 10*3/uL (140-440); RBC 2.72 X 10*6/uL (4.40-5.60); RDW 18.2 % (11.5-14.5); WBC 23.71 X 10*3/uL (4.50-10.00)
[2021-07-19] MEDS ORDERED: ARTIFICIAL TEARS-HYPROMELLOSE DROPS 15 ML BTL BOTH EYES PRN (09:35)
--- NOTE | 2021-07-19 09:36 | P.PCN ---
Date of Procedure: 07/19/21 Procedure(s) Performed: PREOPERATIVE DIAGNOSIS: Sacral decubitus ulcer POSTOPERATIVE DIAGNOSIS: Same PROCEDURE: Excisional debridement SURGEON: Opal EBL: 1 mL ANESTHESIA: None COMPLICATIONS: None OPERATIVE PROCEDURE: Patient kept in the room for the procedure. Placed in the right decubitus position. Area prepped sterilely. Using an 11 blade scalpel the sacral decubitus ulcer was debrided in an excisional manner. Area of debridement 9 cm. Small amount of bleeding was seen. Sterile dressing hamilton muro DISPOSITION: Stable to recovery room
[2021-07-19 09:54] LABS: Basophils # (M) 0 X 10*3/uL (0.00-0.10); Eosinophils # (M) 0.24 X 10*3/uL (0.04-0.35); Lymphocytes # (M) 1.66 X 10*3/uL (0.90-5.00); Metamyelocytes % 3 % (0-0); Monocytes # (M) 0.71 X 10*3/uL (0.20-1.00); Neutrophils # (M) 20.39 X 10*3/uL (2.00-8.90); Neutrophils % (M) 86 %
[2021-07-19 11:23] LABS: Glucose,Whole Blood 81 mg/dL (75-99)
[2021-07-19] MEDS: SODIUM CHLORIDE 0.9% 1,000 ML IV SCH ×2 (11:23→23:36)
[2021-07-19 16:29] LABS: Glucose,Whole Blood 96 mg/dL (75-99)
--- NOTE | 2021-07-19 16:59 | PN ---
PROGRESS NOTE DATE OF SERVICE: 07/19/2021 REASON FOR FOLLOWUP: Left leg cellulitis and sacral pressure ulcer. INTERVAL HISTORY: The patient is status post debridement of his sacral wound by Surgery. No cultures. The patient tolerated the procedure. The patient denies having any chest pain, shortness of breath or cough. No abdominal pain or any worsening pain to the sacral wound or left leg area. PHYSICAL EXAMINATION: Blood pressure 117/69, pulse 97, temperature 99.4. He is 97% on 3 L nasal cannula. GENERAL DESCRIPTION: General description is an elderly male lying in bed in no distress. RESPIRATORY SYSTEM: Unlabored breathing. Clear to auscultation anteriorly. HEART: S1, S2. Regular rate and rhythm. ABDOMEN: Soft. No tenderness. LABS: Hemoglobin is 9.3, white count 23.71. Culture has been negative so far, though. DIAGNOSTIC IMPRESSION AND PLAN: Patient with left leg cellulitis and infected sacral pressure ulcer, status post debridement. Unfortunately no cultures were done. Will re-evaluate the wound tomorrow Continue with the current antibiotic and check his inflammatory markers and CBC tomorrow. Continue with supportive care. MMODL / IJN: [id number] / MTDD
[2021-07-19 20:32] LABS: Glucose,Whole Blood 113 mg/dL (75-99)
[2021-07-20] MEDS: MORPHINE SULFATE ER 60 MG TABLET PO SCH ×2 (00:04→08:51)
[2021-07-20] MEDS: oxyCODONE-APAP 10-325MG 1 EACH TAB PO SCH ×3 (00:08→11:00)
--- NOTE | 2021-07-20 00:58 | P.PN ---
Subjective Progress Note Date: 07/19/21 The patient is currently stable. He underwent debridement of the sacral decubitus earlier today. He is currently on IV antibiotics. No history of any fevers or chills. Left lower extremity swelling is improved.He continues to complain of pain in the posterior thigh/upper posterior calf area, that is worse on ambulation. However he states that he is still able to emulate with a walker. Objective - Vital Signs Vital signs: Vital Signs Temp 98.3 F 07/19/21 20:00 Pulse 60 07/19/21 22:29 Resp 17 07/19/21 22:29 BP 129/61 07/19/21 20:00 Pulse Ox 97 07/19/21 20:00 Intake & Output 07/19/21 07/19/21 07/20/21 06:59 18:59 06:59 Output Total 200 Balance -200 Output: Urine 200 Other: Voiding Method Toilet Toilet # Voids 4 4 - Constitutional General appearance: Present: no acute distress - EENT EENT Comment(s): Poor dentition Eyes: Present: EOMI ENT: Present: hearing grossly normal - Respiratory Respiratory: bilateral: CTA - Cardiovascular Rhythm: regular Heart sounds: normal: S1, S2 - Gastrointestinal General gastrointestinal: Present: normal bowel sounds, soft - Integumentary Integumentary Comment(s): Scabbed ulcer on the left pretibial area, improved. Known decubitus sacral ulcer, not examined today - Neurologic Neurologic: Present: CNII-XII intact - Musculoskeletal Musculoskeletal: Present: generalized weakness - Psychiatric Psychiatric: Present: A&O x's 3, appropriate affect - Labs CBC & Chem 7: 07/19/21 06:47 07/19/21 06:47 Labs: Abnormal Lab Results - Last 24 Hours (Table) 07/19/21 07/19/21 07/19/21 Range/Units 06:47 06:47 20:30 WBC 23.71 H (4.50-10.00) X 10*3/uL RBC 2.72 L (4.40-5.60) X 10*6/uL Hgb 9.3 L (13.0-17.0) g/dL Hct 29.1 L (39.6-50.0) % MCV 107.0 H (80.0-97.0) fL MCH 34.2 H (27.0-32.0) pg RDW 18.2 H (11.5-14.5) % Absolute Nucleated RBC 0.03 H (0.00-0.00) X 10*3/uL Metamyelocytes % 3 H (0-0) % Neutrophils # (Manual) 20.39 H (2.00-8.90) X 10*3/uL NRBC/100 WBC Diff 0.1 H (0.0-0.0) /100 WBCS Creatinine 0.61 L (0.66-1.25) mg/dL POC Glucose (mg/dL) 113 H (75-99) mg/dL Microbiology - Last 24 Hours (Table) 07/16/21 13:40 Blood Culture - Preliminary Blood No Growth after 72 hours 07/16/21 13:23 Blood Culture - Preliminary Blood No Growth after 72 hours Assessment and Plan (1) Cellulitis Narrative/Plan: Left lower extremity swelling, as well as scabbed over also are both improved. Patient is continuing on IV antibiotic Current Visit: Yes Status: Acute Code(s): L03.90 - CELLULITIS, UNSPECIFIED SNOMED Code(s): 178497502 (2) Leukocytosis Current Visit: Yes Status: Acute Code(s): D72.829 - ELEVATED WHITE BLOOD CELL COUNT, UNSPECIFIED SNOMED Code(s): 023971085 (3) Adenocarcinoma of prostate, stage 4 Narrative/Plan: Patient's PSA was 172, compared to 162 after cycle #2. The results were discussed with him. While this is an increase, the degree of increase is not significant enough to be definitive for progression. PSA will be repeated as an outpatient. Unless there is any major increase, this level reasonable to continue with same regimen and monitoring of his PSA. Current Visit: Yes Status: Acute Code(s): C61 - MALIGNANT NEOPLASM OF PROSTATE SNOMED Code(s): 791592094 Plan: The patient's x-ray shows left subcapital femoral fracture that is impacted and nondisplaced. This appears to be associated with metastasis. It is not known if this is new or old. The pt reports some increase in LLE pain, but based on Intensity and location, it is not definitive if this is due to the fracture. The patient states that he is able to ambulate with a walker. Orthopedic surgery will be consulted to assess
--- NOTE | 2021-07-20 00:59 | P.PN ---
Subjective Progress Note Date: 07/19/21 Principal diagnosis: Left lower extremity cellulitis 76-year-old male with significant past medical history of metastatic prostate cancer, received chemotherapy 2 weeks prior, hyperlipidemia, osteoarthritis, and ongoing chronic pain from metastatic prostate cancer. Patient was sent to the emergency department for further evaluation of left lower extremity cellulitis, ultrasound was performed no DVTs noted. Review of labs leukocytosis, chronic anemia, mildly elevated C-reactive protein. Patient was placed on Unasyn and vancomycin for left lower extremity cellulitis. Patient denies fever, chills, shortness of breath, chest pain, palpitations, abdominal pain or nausea vomiting. Consultation with hematology/oncology for ongoing prostate CA; consultation with infectious disease for expert opinion on antibiotic therapy of left lower extremity cellulitis. 07/17/2021 Patient seen and examined at bedside. Patient resting comfortably in no acute signs of distress. Patient endorses chronic pain, decrease in left lower extremity swelling with diuresis. No adverse reaction noted with antibiotic therapy. Vital signs and diagnostic testing reviewed. 07/18/2021 Patient is currently sitting on the side of the bed. Left lower the redness and swelling is improving. Continued on antibiotics in the form of Unasyn as per ID recommendations. Next and pain is controlled with a morphine ER and IV. Denied any complaints of chest pain. Patient has been afebrile. No nausea vomiting or abdominal pain or diarrhea. Laboratory data showed WBC 18.2 hemoglobin 10.0 and platelets 236 MCV 103.2 BUN 7 and creatinine 0.67, AST 19 and 11 and alk phos 248. No complaints of chest pain or shortness of breath. No headache or dizziness or lightheadedness. 07/19/2021 Patient is currently resting in bed comfortably. Left lower extremity swelling and redness is much improved. Patient had excisional debridement of the sacral decub ulcers by general surgery. Blood cultures have been negative so far. Patient is being continued antibiotics in the form of vancomycin and Unasyn. ID is on board. Patient otherwise denied any complaints of chest pain or shortness breath. No nausea vomiting abdominal pain or diarrhea. Tolerating oral diet. Anticipate discharge in next 24 to 48 hours. Laboratory data showed WBC went up to 23.7 hemoglobin 9.3 and platelets 223 Creatinine 0.61 and blood sugar is 84 Active Medications Generic Name Dose Route Start Last Admin Trade Name Freq PRN Reason Stop Dose Admin Artificial Tears 1 drops 07/19/21 09:35 Artificial Tears-Hypromellose Drops 15 Ml Btl BOTH EYES QID PRN Dry Eye(s) Al Hydroxide/Mg Hydroxide 30 0 ml 07/16/21 22:00 07/19/21 20:30 ml/ Diphenhydramine HCl 75 mg/ PO 5 ml Lidocaine HCl 30 ml/ TID MENDOZA Administration Dexamethasone Sodium Phosphate 3 mg/ Sterile Water 29.25 ml Finasteride 1.25 mg 07/17/21 09:00 07/19/21 08:24 Finasteride 5 Mg Tab PO 1.25 mg DAILY MENDOZA Administration Furosemide 20 mg 07/17/21 09:00 07/19/21 08:24 Furosemide 20 Mg Tab PO 20 mg DAILY MENDOZA Administration Heparin Sodium (Porcine) 5,000 unit 07/16/21 21:00 07/19/21 20:29 Heparin Sodium,Porcine/Pf 5,000 Unit/0.5 Ml Syringe SQ 5,000 unit Q12HR MENDOZA Administration Hydromorphone HCl 0.5 mg 07/16/21 14:38 07/19/21 03:51 Hydromorphone 0.5 Mg/0.5 Ml Syringe IVP 0.5 mg Q3HR PRN Administration Moderate Pain Sodium Chloride 1,000 mls @ 75 mls/hr 07/16/21 14:45 07/19/21 23:36 Saline 0.9% IV 75 mls/hr .[id number] MENDOZA Administration Ampicillin Sodium/Sulbactam 100 mls @ 200 mls/hr 07/16/21 20:00 07/19/21 20:29 Sodium 3 gm/ Sodium Chloride IVPB 200 mls/hr Q6H MENDOZA Administration Vancomycin HCl 1,000 mg/ 250 mls @ 125 mls/hr 07/18/21 12:00 07/19/21 20:29 Sodium Chloride IVPB 125 mls/hr Q8H MENDOZA Administration Ibuprofen 600 mg 07/16/21 17:15 07/19/21 23:36 Ibuprofen 600 Mg Tab PO 600 mg Q8HR MENDOZA Administration Insulin Aspart 0 unit 07/18/21 12:30 07/19/21 21:01 Insulin Aspart (Novolog) 100 Unit/Ml Vial SQ Not Given ACHS MENDOZA Protocol Lorazepam 1 mg 07/19/21 13:25 07/19/21 15:12 Lorazepam 1 Mg Tab PO 1 mg BID PRN Administration Anxiety Miscellaneous Information 0 each 07/20/21 11:00 Vancomycin Trough Due 1 Each Misc MISCELLANE 07/20/21 11:01 DIRECTED ONE Morphine Sulfate 4 mg 07/16/21 14:38 07/16/21 18:30 Morphine Sulfate 4 Mg/Ml Syringe IV 4 mg Q4HR PRN Administration Severe Pain Morphine Sulfate 60 mg 07/16/21 17:15 07/20/21 00:04 Morphine Sulfate Er 60 Mg Tablet PO 60 mg Q8HR MENDOZA Administration Protocol Naloxone HCl 0.2 mg 07/16/21 14:38 Naloxone 0.4 Mg/Ml 1 Ml Vial IV Q2M PRN Opioid Reversal Ondansetron HCl 4 mg 07/16/21 14:38 Ondansetron 4 Mg/2 Ml Vial IVP Q8HR PRN Nausea And Vomiting Oxycodone/Acetaminophen 2.5 each 07/16/21 18:00 07/20/21 00:08 Oxycodone-Apap 10-325mg 1 Each Tab PO 2.5 each Q6HR MENDOZA Administration Pantoprazole Sodium 40 mg 07/17/21 07:30 07/19/21 08:23 Pantoprazole 40 Mg Tablet PO 40 mg [id number] MENDOZA Administration Potassium Chloride 10 meq 07/17/21 09:00 07/19/21 08:22 Potassium Chloride Er 10 Meq Tab.Er.Prt PO 10 meq DAILY MENDOZA Administration Prednisone 5 mg 07/16/21 21:00 07/19/21 22:00 Prednisone 5 Mg Tab PO 07/28/21 23:00 5 mg BID MENDOZA Administration Prochlorperazine Maleate 10 mg 07/16/21 16:48 Prochlorperazine 10 Mg Tab PO Q6H PRN Nausea Senna/Docusate Sodium 1 each 07/16/21 21:00 07/19/21 20:29 Sennosides-Docusate Sodium 1 Each Tab PO 1 each BID MENDOZA Administration Verapamil HCl 180 mg 07/17/21 09:00 07/19/21 08:25 Verapamil Sr 180 Mg Tablet.Er PO 180 mg DAILY MENDOZA Administration Objective - Vital Signs Vital signs: Vital Signs Temp 98.3 F 07/19/21 20:00 Pulse 60 07/19/21 20:00 Resp 17 07/19/21 20:00 BP 129/61 07/19/21 20:00 Pulse Ox 97 07/19/21 20:00 Intake & Output 07/19/21 07/19/21 07/20/21 06:59 18:59 06:59 Output Total 200 Balance -200 Output: Urine 200 Other: Voiding Method Toilet Toilet # Voids 4 4 - Exam - Constitutional General appearance: cooperative, mild distress - EENT Eyes: EOMI, PERRLA - Neck Neck: normal ROM Carotids: bilateral: upstroke normal Thyroid: bilateral: normal size - Respiratory Respiratory: bilateral: CTA (Anterior and posterior lung roldan) - Cardiovascular Sinus rhythm Heart rate: 84 Rhythm: regular Heart sounds: normal: S1, S2 leg Peripheral Edema: left: 2+ radial pulse Peripheral Pulses: bilateral: Normal - Gastrointestinal General gastrointestinal: normal bowel sounds - Integumentary Left lower extremity erythema and swelling noted Sacral wound in healing stages noted Integumentary: pale - Neurologic Neurologic: CNII-XII intact - Musculoskeletal Musculoskeletal: generalized weakness - Psychiatric Psychiatric: A&O x's 3, appropriate affect, intact judgment & insight - Labs CBC & Chem 7: 07/19/21 06:47 07/19/21 06:47 Labs: Abnormal Lab Results - Last 24 Hours (Table) 07/19/21 07/19/21 07/19/21 Range/Units 06:47 06:47 20:30 WBC 23.71 H (4.50-10.00) X 10*3/uL RBC 2.72 L (4.40-5.60) X 10*6/uL Hgb 9.3 L (13.0-17.0) g/dL Hct 29.1 L (39.6-50.0) % MCV 107.0 H (80.0-97.0) fL MCH 34.2 H (27.0-32.0) pg RDW 18.2 H (11.5-14.5) % Absolute Nucleated RBC 0.03 H (0.00-0.00) X 10*3/uL Metamyelocytes % 3 H (0-0) % Neutrophils # (Manual) 20.39 H (2.00-8.90) X 10*3/uL NRBC/100 WBC Diff 0.1 H (0.0-0.0) /100 WBCS Creatinine 0.61 L (0.66-1.25) mg/dL POC Glucose (mg/dL) 113 H (75-99) mg/dL Microbiology - Last 24 Hours (Table) 07/16/21 13:40 Blood Culture - Preliminary Blood No Growth after 72 hours 07/16/21 13:23 Blood Culture - Preliminary Blood No Growth after 72 hours Assessment and Plan Assessment: Left lower extremity cellulitis Sacral pressure ulcer Leukocytosis Metastatic prostate cancer Hyperlipidemia Osteoarthritis Chronic pain related to prostate cancer DO NOT RESUSCITATE Plan: Lower extremity cellulitis, continue Unasyn and vancomycin; ID is on board. Leukocytosis continue to trend, possibly related to infectious process Metastatic prostate cancer with extreme ongoing pain, continue analgesic therapy as needed Continue home medications Continue to monitor vital signs and diagnostic testing Continue medical management Further recommendations come based on patient's clinical condition Time with Patient: Greater than 30
[2021-07-20] MEDS: LORazepam 1 MG TAB PO PRN (03:01)
[2021-07-20] MEDS: VANCOMYCIN 1,000 MG in SODIUM CHLORIDE 0.9% 250 ML IVPB SCH ×2 (03:01→12:30)
[2021-07-20] MEDS: AMPICILLIN-SULBACTAM 3 GM in SODIUM CHLORIDE 0.9% 100 ML IVPB SCH ×2 (03:01→12:29)
[2021-07-20 03:13] VITALS: PULSE 68; RESP 16
[2021-07-20 07:32] LABS: Glucose,Whole Blood 101 mg/dL (75-99)
[2021-07-20] MEDS: INSULIN ASPART (NovoLOG) 100 UNIT/ML VIAL SQ SCH ×2 (07:35→12:31)
[2021-07-20 07:54] VITALS: BP 147/69; TEMP 98.4
[2021-07-20] MEDS: PANTOPRAZOLE 40 MG TABLET PO SCH (08:50)
[2021-07-20] MEDS: FINASTERIDE 5 MG TAB PO SCH (08:50)
[2021-07-20] MEDS: IBUPROFEN 600 MG TAB PO SCH (08:50)
[2021-07-20] MEDS: POTASSIUM CHLORIDE ER 10 MEQ TAB.ER.PRT PO SCH (08:50)
[2021-07-20] MEDS: predniSONE 5 MG TAB PO SCH (08:51)
[2021-07-20] MEDS: FUROSEMIDE 20 MG TAB PO SCH (08:51)
[2021-07-20] MEDS: VERAPAMIL SR 180 MG TABLET.ER PO SCH (08:51)
[2021-07-20] MEDS: SENNOSIDES-DOCUSATE SODIUM 1 EACH TAB PO SCH (08:51)
[2021-07-20] MEDS: HEPARIN SODIUM,PORCINE/PF 5,000 UNIT/0.5 ML SYRINGE SQ SCH (08:51)
--- NOTE | 2021-07-20 09:15 | P.CNOR ---
History of Present Illness - [facility] Consult date: 07/20/21 Requesting physician: Amauri Phan Consult reason: fracture (Left subcapital femoral neck fracture) History of present illness: Patient is a pleasant 76-year-old male who is seen and examined at bedside for further evaluation of his left hip. Patient originally presented to the [facility] on 07/16/2021 for further treatment evaluation for cellulitis. Patient is known to have metastatic prostate cancer and is undergoing chemotherapy. He's been seen and examined by Dr. Phan. Patient is also known to have a decubitus ulcer and underwent excisional debridement of his sacral decubitus ulcer yesterday with Dr. Joseph. He has been experiencing some pain in his left posterior thigh and calf. Due to his pain x-ray imaging of his pelvis and left hip were taken. Imaging showed evidence of a left subcapital femoral neck fracture. Patient states that the bedside he is not experiencing any significant pain in his hip. He is able to ambulate on the bilateral lower extremities. Weightbearing on the left lower extremity causes some increase posterior thigh and calf pain. He denies any injuries to his left hip. He states he knows that he has stage IV metastatic prostate cancer and we did discuss his femoral neck fracture. He states given his lack of pain and his reduced life expectancy he does not currently want any treatment specifically for his left hip. He states he would like to be discharged home today as he does not feel he needs admitted to the hospital further. Patient's other medical diagnoses include chronic pain related to prostate cancer, hyperlipidem ia, leukocytosis, and left lower extremity cellulitis improved. He is being seen by multiple medical providers including medicine, Gen. surgery, oncology, and infectious disease. Past Medical History Past Medical History: Cancer, Hyperlipidemia, Osteoarthritis (OA), Prostate Disorder Additional Past Medical History / Comment(s): Prostate ca, finished chemo June-2016 History of Any Multi-Drug Resistant Organisms: None Reported Past Surgical History: Tonsillectomy Additional Past Surgical History / Comment(s): Abd. surgery for ? rupture. Col onoscopy. Past Anesthesia/Blood Transfusion Reactions: No Reported Reaction Past Psychological History: No Psychological Hx Reported Smoking Status: Never smoker Past Alcohol Use History: None Reported Past Drug Use History: None Reported - Past Family History Mother Family Medical History: No Reported History Medications and Allergies Home Medications Medication Instructions Recorded Confirmed Type Verapamil HCl [Verapamil ER] 180 mg PO DAILY 09/24/16 07/16/21 History Finasteride [Proscar] 1.25 mg PO DAILY 07/16/21 07/16/21 History Furosemide [Lasix] 20 mg PO DAILY 07/16/21 07/16/21 History Ibuprofen [Motrin] 600 mg PO Q8H 07/16/21 07/16/21 History Oumar's Solution 5 ml PO QID PRN 07/16/21 07/16/21 History LORazepam [Ativan] 1 mg PO DAILY PRN 07/16/21 07/16/21 History Morphine Sulfate [Ms Contin] 60 mg PO Q8H 07/16/21 07/16/21 History Naloxone HCl [Narcan] 4 mg NASAL ONCE PRN 07/16/21 07/16/21 History Potassium Chloride ER [K-Dur 10] 10 meq PO DAILY 07/16/21 07/16/21 History Prochlorperazine [Compazine] 10 mg PO Q6H PRN 07/16/21 07/16/21 History Sennosides/Docusate Sodium [Senna 1 tab PO BID 07/16/21 07/16/21 History Plus 8.6-50 mg Tablet] oxyCODONE-APAP 10-325MG [Percocet 2.5 tab PO Q6H 07/16/21 07/16/21 History 10-325 mg] predniSONE 5 mg PO DIRECTED 07/16/21 07/16/21 History Allergies Allergy/AdvReac Type Severity Reaction Status Date / Time sulfur dioxide Allergy Anaphylaxis Verified 07/16/21 16:23 Physical Examination Physical Exam: Patient is awake, alert, and oriented 3 Vital signs stable Good chest excursion with deep inspiration and expiration Patient is able to lift legs independently off the bed bilaterally without difficulty No pain with internal/external rotation of the hips bilaterally Lower extremity strength is 5/5 including dorsiflexion and plantar flexion bilaterally Patient is able to perform hip flexion and knee extension against resistance bilaterally without difficulty Patient is able to stand at the bedside No increased pain with passive range of motion of the left hip with the left hip in flexion with internal with internal and external rotation No pain on palpation over the left hip Results Pertinent studies: X-rays of the pelvis and left hip taken on 07/17/2021: Acute subcapital impacted left femur fracture; osteoblastic metastatic disease - Labs Labs: Abnormal Lab Results - Last 24 Hours (Table) 07/19/21 07/19/21 07/20/21 Range/Units 06:47 20:30 07:11 WBC 23.71 H (4.50-10.00) X 10*3/uL RBC 2.72 L (4.40-5.60) X 10*6/uL Hgb 9.3 L (13.0-17.0) g/dL Hct 29.1 L (39.6-50.0) % MCV 107.0 H (80.0-97.0) fL MCH 34.2 H (27.0-32.0) pg RDW 18.2 H (11.5-14.5) % Absolute Nucleated RBC 0.03 H (0.00-0.00) X 10*3/uL Metamyelocytes % 3 H (0-0) % Neutrophils # (Manual) 20.39 H (2.00-8.90) X 10*3/uL NRBC/100 WBC Diff 0.1 H (0.0-0.0) /100 WBCS POC Glucose (mg/dL) 113 H 101 H (75-99) mg/dL Microbiology - Last 24 Hours (Table) 07/16/21 13:40 Blood Culture - Preliminary Blood No Growth after 72 hours 07/16/21 13:23 Blood Culture - Preliminary Blood No Growth after 72 hours H & H 07/16/21 07/17/21 07/18/21 Range/Units 13:23 05:30 08:21 Hgb 10.6 L 9.0 L 10.0 L (13.0-17.5) gm/dL Hct 29.8 L 27.7 L 29.2 L (39.0-53.0) % 07/19/21 Range/Units 06:47 Hgb 9.3 L (13.0-17.5) gm/dL Hct 29.1 L (39.0-53.0) % Result Diagrams: 07/19/21 06:47 07/19/21 06:47 Assessment and Plan Assessment: Assessment: Acute subcapital impacted left femur fracture Osteoblastic metastatic disease Left lower extremity radiculopathy Left lower extremity cellulitis improved Stage IV metastatic prostate cancer Status post excisional debridement of sacral decubitus ulcer Leukocytosis Hyperlipidemia (1) Subcapital fracture of neck of left femur Current Visit: Yes Status: Acute Code(s): S72.012A - UNSP INTRACAPSULAR FRACTURE OF LEFT FEMUR, INIT FOR CLOS FX SNOMED Code(s): 528441535 (2) Metastatic cancer to bone Current Visit: Yes Status: Acute Code(s): C79.51 - SECONDARY MALIGNANT NEOPLASM OF BONE SNOMED Code(s): 60525139 (3) Lumbar back pain with radiculopathy affecting left lower extremity Current Visit: Yes Status: Acute Code(s): M54.16 - RADICULOPATHY, LUMBAR REGION SNOMED Code(s): 357370634 (4) Adenocarcinoma of prostate, stage 4 Current Visit: Yes Status: Acute Code(s): C61 - MALIGNANT NEOPLASM OF PROSTATE SNOMED Code(s): 792944105 (5) Cellulitis Current Visit: Yes Status: Acute Code(s): L03.90 - CELLULITIS, UNSPECIFIED SNOMED Code(s): 083092433 (6) Leukocytosis Current Visit: Yes Status: Acute Code(s): D72.829 - ELEVATED WHITE BLOOD CELL COUNT, UNSPECIFIED SNOMED Code(s): 639134676 (7) Sacral decubitus ulcer, stage III Current Visit: Yes Status: Acute Code(s): L89.153 - PRESSURE ULCER OF SACRAL REGION, STAGE 3 SNOMED Code(s): 776163798 Plan: Plan: 1. Patient had been experiencing some pain down the left posterior thigh and calf. X-ray imaging of his pelvis and left hip were taken for further evaluation. Patient was found to have an acute subcapital impacted left femoral neck fracture. Patient states he does not have any pain at his left hip. He denies any groin pain. He states he has continued to ambulate on the bilateral lower extremities. He states ambulation causes increased left posterior thigh and calf pain but no pain specifically to his hip or groin. He states he is known to have stage IV metastatic prostate cancer with less than one year of expected life expectancy. He states given his overall health and lack of pain i n his left hip he does not wish to have any further treatment or evaluation in regards to his left hip. He has not had an injury to his hip. We did discuss his osteoblastic metastatic disease and that his fracture is most likely cause due to his metastatic prostate cancer. He discussed that given his known fracture and osteoblastic metastatic disease, we discussed his fracture could worsen at any time with or without trauma and become an acute local issue requiring intervention or further treatment. Patient still states given his ability to ambulate and lack of pain he does not wish to have any intervention at this time in regards to his left hip. Patient has been discussed in detail Dr. Mustapha Salazar. Based on the patient's request, we will not currently plan for further treatment or evaluation regards to his left hip. We did discuss his left hip fracture may not remain maintained and that his fracture may worsen causing him inability to ambulate. He states again he elects to continue conservative treatment. At this time, we'll plan to have him follow-up in the outpatient setting on an as-needed basis. Patient may follow-up with Kelvin Rivera PA-C or Dr. Mustapha Salazar at [facility] on an as- needed basis following discharge. 2. Patient will continue be seen examined by multiple other medical providers including medicine, oncology, and general surgery Time with Patient: Greater than 30 (Including obtaining history, physical examination, reviewing of imaging, and dictation.)
[2021-07-20] MEDS ORDERED: VANCOMYCIN TROUGH DUE 1 EACH MISC MISCELLANE ONE (11:00)
[2021-07-20] MEDS: MAG HYDROX/AL HYDROX/SIMETH 30 ML, diphenhydrAMINE ELIXIR 75 MG, LIDOCAINE VISCOUS 30 M... PO SCH ×5 (11:00)
--- NOTE | 2021-07-20 11:34 | P.PN ---
<Johanna,Renee - Last Filed: 07/20/21 11:25> Subjective Progress Note Date: 07/20/21 CHIEF COMPLAINT: Sacral decubitus ulcer HISTORY OF PRESENT ILLNESS: Patient is seen and examined. He is status post excisional debridement of sacral decubitus ulcer. Patient states he has some mild discomfort in the area. No fevers or chills. He has been afebrile. Patient was seen by orthopedics today for left subcapital femoral neck fracture. Patient is denying any left hip pain. He has also stated that he does not want any intervention. PHYSICAL EXAM: VITAL SIGNS: Reviewed. GENERAL: Well-developed in no acute distress. HEENT: No sclera icterus. Extraocular movements grossly intact. Moist buccal mucosa. Head is atraumatic, normocephalic. ABDOMEN: Soft. Nondistended. Nontender. Skin: Sacral decubitus ulcer with pain tissue, no drainage or bleeding noted. NEUROLOGIC: Alert and oriented. Cranial nerves II through XII grossly intact. ASSESSMENT: 1. Sacral decubitus ulcer, status post excisional debridement PLAN: -Continue dressing changes per recommendations from infectious disease -Continue antibiotics as ordered per infectious disease The impression and plan of care has been dictated as directed. I performed a history and examination of this patient, discussed the same with the dictator. I agree with the dictator's note ,documented as a scribe. Any additional findings or plans will be noted. Objective - Vital Signs Vital signs: Vital Signs Temp 98.4 F 07/20/21 07:00 Pulse 68 07/20/21 07:30 Resp 16 07/20/21 07:30 BP 147/69 07/20/21 07:00 Pulse Ox 96 07/20/21 07:00 Intake & Output 07/19/21 07/20/21 07/20/21 18:59 06:59 18:59 Output Total 700 Balance -700 Output: Urine 700 Other: Voiding Method Toilet Toilet # Voids 4 - Labs CBC & Chem 7: 07/19/21 06:47 07/19/21 06:47 Labs: Abnormal Lab Results - Last 24 Hours (Table) 07/19/21 07/20/21 Range/Units 20:30 07:11 POC Glucose (mg/dL) 113 H 101 H (75-99) mg/dL Microbiology - Last 24 Hours (Table) 07/16/21 13:40 Blood Culture - Preliminary Blood No Growth after 72 hours 07/16/21 13:23 Blood Culture - Preliminary Blood No Growth after 72 hours <Kyle Joseph - Last Filed: 07/20/21 14:36> Subjective As above. Patient doing well today. Continue local wound care. Follow-up with infectious disease post discharge. No follow-up with myself needed. Objective - Vital Signs Vital signs: Vital Signs Temp 98.4 F 07/20/21 07:00 Pulse 68 07/20/21 07:30 Resp 16 07/20/21 07:30 BP 147/69 07/20/21 07:00 Pulse Ox 96 07/20/21 07:00 Intake & Output 07/19/21 07/20/21 07/20/21 18:59 06:59 18:59 Output Total 700 Balance -700 Output: Urine 700 Other: Voiding Method Toilet Toilet # Voids 4 - Labs CBC & Chem 7: 07/20/21 05:33 07/19/21 06:47 Labs: Abnormal Lab Results - Last 24 Hours (Table) 07/19/21 07/20/21 07/20/21 Range/Units 20:30 05:33 07:11 WBC 24.00 H (4.50-10.00) X 10*3/uL RBC 2.90 L (4.40-5.60) X 10*6/uL Hgb 9.8 L (13.0-17.0) g/dL Hct 30.7 L (39.6-50.0) % MCV 105.9 H (80.0-97.0) fL MCH 33.8 H (27.0-32.0) pg MCHC 31.9 L (32.0-37.0) g/dL RDW 18.1 H (11.5-14.5) % Absolute Nucleated RBC 0.04 H (0.00-0.00) X 10*3/uL Metamyelocytes % 1 H (0-0) % Myelocytes % 1 H (0-0) % Neutrophils # (Manual) 20.64 H (2.00-8.90) X 10*3/uL Eosinophils # (Manual) 0 L (0.04-0.35) X 10*3/uL NRBC/100 WBC Diff 0.2 H (0.0-0.0) /100 WBCS POC Glucose (mg/dL) 113 H 101 H (75-99) mg/dL Microbiology - Last 24 Hours (Table) 07/16/21 13:40 Blood Culture - Preliminary Blood No Growth after 72 hours 07/16/21 13:23 Blood Culture - Preliminary Blood No Growth after 72 hours Assessment and Plan (1) Sacral decubitus ulcer, stage III Current Visit: Yes Status: Acute Code(s): L89.153 - PRESSURE ULCER OF SACRAL REGION, STAGE 3 SNOMED Code(s): 848809528
[2021-07-20 12:31] LABS: HCT 30.7 % (39.6-50.0); HGB 9.8 g/dL (13.0-17.0); MCH 33.8 pg (27.0-32.0); MCHC 31.9 g/dL (32.0-37.0); MCV 105.9 fL (80.0-97.0); Mean Platelet Volume 10.1 fL (9.5-12.2); Platelet Count 221 X 10*3/uL (140-440); RDW 18.1 % (11.5-14.5)
[2021-07-20 13:05] LABS: Basophils # (M) 0 X 10*3/uL (0.00-0.10); Eosinophils # (M) 0 X 10*3/uL (0.04-0.35); Lymphocytes # (M) 1.92 X 10*3/uL (0.90-5.00); Macrocytosis (M) 2+; Metamyelocytes % 1 % (0-0); Monocytes # (M) 0.96 X 10*3/uL (0.20-1.00); Myelocytes % 1 % (0-0); Neutrophils # (M) 20.64 X 10*3/uL (2.00-8.90); Neutrophils % (M) 86 %
[2021-07-20 14:44] LABS: Anion Gap 9.2 mmol/L (4.00-12.00); BUN/Creat Ratio 13.33 Ratio (12.00-20.00); Calcium 9.1 mg/dL (8.7-10.3); Carbon Dioxide 25.8 mmol/L (21.6-31.8); Non-African American GFR(CKD) 98.4 (60.0-200.0); Potassium 3.4 mmol/L (3.5-5.5)
[2021-07-20] MEDS ORDERED: POTASSIUM CHLORIDE ER 20 MEQ TAB.ER PO STA (15:10)
--- NOTE | 2021-07-20 15:17 | P.DS ---
Providers Date of admission: 07/16/21 14:58 Expected date of discharge: 07/20/21 Attending physician: Manav Martínez Consults: 07/16/21 14:59 Consult Physician Routine Consulting Provider: Amauri Phan Consult Reason/Comments: cellulitis, on chemo Do you want consulting provider notified?: Yes 07/17/21 06:42 Consult Physician Routine Consulting Provider: Daniel Naranjo Consult Reason/Comments: Cellulitis/antibiotic therapy Do you want consulting provider notified?: Yes 07/18/21 15:23 Consult Physician Routine Consulting Provider: Kyle Joseph Consult Reason/Comments: sacral wound debridement Do you want consulting provider notified?: Yes 07/20/21 00:58 Consult Physician Routine Consulting Provider: Gael Pinedo Consult Reason/Comments: L femoral fracture Do you want consulting provider notified?: Yes, Notify in am Primary care physician: Manav Martínez Hospital Course: Final diagnosis Left lower extremity cellulitis Sacral pressure ulcer Leukocytosis Metastatic prostate cancer Hyperlipidemia Osteoarthritis Chronic pain related to prostate cancer DO NOT RESUSCITATE Discharge disposition Patient is being discharged in a stable condition with guarded prognosis to home. patient to continue with [facility] and arrangements being made for [facility] for wound care follow-up. Patient will follow-up with Dr. Martínez in the outpatient setting upon discharge. Patient is to follow-up with wound care center with Dr. Naranjo outpatient. patient will continue on oral Augmentin twice daily for the next 10 days to complete the course. Total time taken is greater than 35 minutes. Hospital course Left lower extremity cellulitis 76-year-old male with significant past medical history of metastatic prostate cancer, received chemotherapy 2 weeks prior, hyperlipidemia, osteoarthritis, and ongoing chronic pain from metastatic prostate cancer. Patient was sent to the emergency department for further evaluation of left lower extremity cellulitis, ultrasound was performed no DVTs noted. Review of labs leukocytosis, chronic anemia, mildly elevated C-reactive protein. Patient was placed on Unasyn and vancomycin for left lower extremity cellulitis. Patient denies fever, chills, shortness of breath, chest pain, palpitations, abdominal pain or nausea vomiting. Consultation with hematology/oncology for ongoing prostate CA; consultation with infectious disease for expert opinion on antibiotic therapy of left lower extremity cellulitis. 07/17/2021 Patient seen and examined at bedside. Patient resting comfortably in no acute signs of distress. Patient endorses chronic pain, decrease in left lower extremity swelling with diuresis. No adverse reaction noted with antibiotic therapy. Vital signs and diagnostic testing reviewed. 07/18/2021 Patient is currently sitting on the side of the bed. Left lower the redness and swelling is improving. Continued on antibiotics in the form of Unasyn as per ID recommendations. Next and pain is controlled with a morphine ER and IV. Denied any complaints of chest pain. Patient has been afebrile. No nausea vomiting or abdominal pain or diarrhea. Laboratory data showed WBC 18.2 hemoglobin 10.0 and platelets 236 MCV 103.2 BUN 7 and creatinine 0.67, AST 19 and 11 and alk phos 248. No complaints of chest pain or shortness of breath. No headache or dizziness or lightheadedness. 07/19/2021 Patient is currently resting in bed comfortably. Left lower extremity swelling and redness is much improved. Patient had excisional debridement of the sacral decub ulcers by general surgery. Blood cultures have been negative so far. Patient is being continued antibiotics in the form of vancomycin and Unasyn. ID is on board. Patient otherwise denied any complaints of chest pain or shortness breath. No nausea vomiting abdominal pain or diarrhea. Tolerating oral diet. Anticipate discharge in next 24 to 48 hours. Laboratory data showed WBC went up to 23.7 hemoglobin 9.3 and platelets 223 Creatinine 0.61 and blood sugar is 84 07/20/2021 Patient is seen in follow-up this morning no acute overnight issues. Left lower extremity dressing is dry and intact and underwent debridement of the sacral ulcer by general surgery and will continue with local wound care. Patient states the swelling of the left lower extremity has improved and requesting to go home. Patient was continued on IV vancomycin with infectious disease following closely and continue local wound care and will follow-up in the outpatient setting at the wound care center and continue with [facility] for wound treatments along with home care in the outpatient setting. Patient will be transitioned to oral Augmentin twice daily for the next 10 days per infectious disease recommendations. Patient also on Decadron elixir and oncology arranging at discharge. Patient will follow-up with oncology in the outpatient setting. Patient is adamant about going home today. Currently no reports of chest pain, shortness of breath, or palpitations. Patient is afebrile. No reports of nausea or vomiting and patient is tolerating diet. Patient will be discharged home today. guarded prognosis PHYSICAL EXAM: Patient is sitting at the site of the bed, awake alert and oriented.. HEENT: Normocephalic. Neck is supple. Pupils reactive. Nostrils clear. Oral cavity is moist. Neck reveals no JVD, carotid bruits, or thyromegaly. CHEST EXAMINATION: Trachea is central. Symmetrical expansion.diminished breath sounds bilaterally. No wheezing or rhonchi noted.. CARDIAC: Normal S1, S2 with no gallops. No murmurs ABDOMEN: Soft. Bowel sounds normal. No organomegaly. No abdominal bruits. Extremities: reveal no edema. No clubbing or cyanosis Neurologically awake, alert, oriented x3 with well-coordinated movements. No focal deficits noted Skin: No rash or skin lesions. left lower extremity dressing is dry and intact Psychiatric: Cooperative. Musculoskeletal: No joint swelling or deformity. Normal range of motion. Please refer to medication reconciliation sheet for a list of medications. Patient Condition at Discharge: Fair Plan - Discharge Summary Discharge Rx Participant: No New Discharge Prescriptions: New Amoxic-Pot Clav 875-125Mg [Augmentin 875-125] 1 tab PO Q12HR 10 Days #20 tab Pantoprazole [Protonix] 40 mg PO AC-BRKFST #30 tab Continue Verapamil HCl [Verapamil ER] 180 mg PO DAILY predniSONE 5 mg PO DIRECTED Potassium Chloride ER [K-Dur 10] 10 meq PO DAILY Naloxone HCl [Narcan] 4 mg NASAL ONCE PRN PRN Reason: OVERDOSE Morphine Sulfate [Ms Contin] 60 mg PO Q8H LORazepam [Ativan] 1 mg PO DAILY PRN PRN Reason: Anxiety Ibuprofen [Motrin] 600 mg PO Q8H Furosemide [Lasix] 20 mg PO DAILY Finasteride [Proscar] 1.25 mg PO DAILY Sennosides/Docusate Sodium [Senna Plus 8.6-50 mg Tablet] 1 tab PO BID Prochlorperazine [Compazine] 10 mg PO Q6H PRN PRN Reason: Nausea oxyCODONE-APAP 10-325MG [Percocet 10-325 mg] 2.5 tab PO Q6H Oumar's Solution 5 ml PO QID PRN PRN Reason: Pain Discharge Medication List Verapamil HCl [Verapamil ER] 180 mg PO DAILY 09/24/16 [History] Finasteride [Proscar] 1.25 mg PO DAILY 07/16/21 [History] Furosemide [Lasix] 20 mg PO DAILY 07/16/21 [History] Ibuprofen [Motrin] 600 mg PO Q8H 07/16/21 [History] Oumar's Solution 5 ml PO QID PRN 07/16/21 [History] LORazepam [Ativan] 1 mg PO DAILY PRN 07/16/21 [History] Morphine Sulfate [Ms Contin] 60 mg PO Q8H 07/16/21 [History] Naloxone HCl [Narcan] 4 mg NASAL ONCE PRN 07/16/21 [History] Potassium Chloride ER [K-Dur 10] 10 meq PO DAILY 07/16/21 [History] Prochlorperazine [Compazine] 10 mg PO Q6H PRN 07/16/21 [History] Sennosides/Docusate Sodium [Senna Plus 8.6-50 mg Tablet] 1 tab PO BID 07/16/21 [History] oxyCODONE-APAP 10-325MG [Percocet 10-325 mg] 2.5 tab PO Q6H 07/16/21 [History] predniSONE 5 mg PO DIRECTED 07/16/21 [History] Amoxic-Pot Clav 875-125Mg [Augmentin 875-125] 1 tab PO Q12HR 10 Days #20 tab 07/20/21 [Rx] Pantoprazole [Protonix] 40 mg PO AC-BRKFST #30 tab 07/20/21 [Rx] Follow up Appointment(s)/Referral(s): Manav Martínez MD [Primary Care Provider] - 07/24/21 3:20 pm Amauri Phan MD [STAFF PHYSICIAN] - 07/22/21 4:45 pm [facility] [NON-STAFF] - 1-2 Days (wound care) Kelvin Rivera PAC [PHYSICIAN [employer]] - As Needed (Patient may follow-up with Kelvin Rivera PA-C or Dr. Mustapha Salazar at [facility] in 2-3 weeks following discharge. ) [facility], [NON-STAFF] - 1 Week Daniel Naranjo MD [STAFF PHYSICIAN] - 1 Week ([phone] to call and make appointment) Patient Instructions/Handouts: Cellulitis (DC) Activity/Diet/Wound Care/Special Instructions: Activity Limited until follow-up Follow-up primary care provider on discharge Follow-up oncology outpatient Follow-up outpatient about pain management and medication adjustments Continue with medications as prescribed Continue with wound care with medical honey to the sacral wound followed by a moist dressing Follow-up with infectious disease Dr. Naranjo at the wound care center [phone] to make an appointment Discharge Disposition: HOME SELF-CARE
[2021-07-20] MEDS ORDERED: VANCOMYCIN 1,250 MG in SODIUM CHLORIDE 0.9% 250 ML IVPB SCH (16:00)
== END 2021-07-20 15:23 | disposition home or self-care (01) | DRG 593 ==
LOC: EC 12:00 → 1SOBS 14:58 → 4SSUR 18:00
PROVIDERS: ADMIT Family Medicine; ATTEND Family Medicine
PROC: 0HB6XZZ Excision of Back Skin, External Approach (ICD-10-PCS; principal; 2021-07-19)
DX: L89.153 Pressure ulcer of sacral region, stage 3 (principal); L03.116 Cellulitis of left lower limb; C79.51 Secondary malignant neoplasm of bone; M84.552A Pathological fracture in neoplastic disease, left femur, initial encounter for fracture; C61 Malignant neoplasm of prostate; Z66 Do not resuscitate; G89.3 Neoplasm related pain (acute) (chronic); E78.5 Hyperlipidemia, unspecified; F41.9 Anxiety disorder, unspecified; M19.90 Unspecified osteoarthritis, unspecified site; D64.9 Anemia, unspecified; M54.16 Radiculopathy, lumbar region; Z88.2 Allergy status to sulfonamides; Z79.899 Other long term (current) drug therapy; Z85.46 Personal history of malignant neoplasm of prostate; Z92.21 Personal history of antineoplastic chemotherapy; Z79.2 Long term (current) use of antibiotics; Z79.891 Long term (current) use of opiate analgesic; Z79.890 Hormone replacement therapy
CPT/HCPCS: 36415; 73502; 80048; 80053; 80202; 82565; 83605; 83735; 84145; 85025; 85652; 86140; 87040; 96361; 96365; 96366; 96375; 96376; 99285